=== PATIENT | male | born 1955 | race Caucasian/White ===

== ENCOUNTER 2016-10-06 09:36 | Emergency (ER) | payer OTHER ==
[~2016-10-06] VITALS: Ht 182.9 cm; Wt 73.9 kg
[2016-10-06] MEDS ORDERED: INCR1INH (09:52)
[2016-10-06] MEDS ORDERED: TRAZ100T4 (09:52)
[2016-10-06] MEDS ORDERED: PRAZ2CAP (09:52)
[2016-10-06] MEDS ORDERED: PRAV80TA2 (09:52)
[2016-10-06] MEDS ORDERED: ALBU17IN (09:52)
[2016-10-06] MEDS ORDERED: ASPIRIN 81 MG CHEW TABLET PO ONE (11:00)
[2016-10-06 11:07] LABS: BASO % 0.3 % (0.0-1.0); EOS # 0.3 K/mm3 (0.0-0.50); EOS % 3.4 % (0.0-3.0); LARGE UNSTAINED CELL # 0.1 K/mm3 (0.0-0.4); LARGE UNSTAINED CELL % 1.5 % (0.0-4.0); LYMPH # 2.6 K/mm3 (1.5-4.5); LYMPH % 27.8 % (24.0-44.0); MEAN CORPUSCULAR HEMOGLOBIN 30.5 pg (27.0-33.0); MEAN CORPUSCULAR HGB CONC 33.3 g/dl (32.0-36.5); MEAN CORPUSCULAR VOLUME 91.8 fl (80.0-96.0); MONO # 0.4 K/mm3 (0.0-0.8); MONO % 4.4 % (0.0-5.0); NEUTROPHILS # 5.9 K/mm3 (1.8-7.7); NEUTROPHILS % 62.7 % (36.0-66.0); PLATELET COUNT, AUTOMATED 296 k/mm3 (150-450); RED CELL DISTRIBUTION WIDTH 13.5 % (11.5-14.5); WHITE BLOOD COUNT 9.4 K/mm3 (4.0-10.0)
[2016-10-06 11:20] LABS: ALBUMIN 3.4 GM/DL (3.2-5.2); ALBUMIN/GLOBULIN RATIO 0.92 (1.00-1.93); ALKALINE PHOSPHATASE 83 U/L (45-117); ALT/SGPT 12 U/L (12-78); ANION GAP 6 MEQ/L (8-16); AST/SGOT 11 U/L (15-37); BILIRUBIN,DIRECT 0.1 MG/DL (0.0-0.2); BILIRUBIN,TOTAL 0.7 MG/DL (0.2-1.0); BLOOD UREA NITROGEN 10 MG/DL (7-18); CALCIUM LEVEL 8.6 MG/DL (8.5-10.1); CARBON DIOXIDE LEVEL 26 MEQ/L (21-32); CHLORIDE LEVEL 107 MEQ/L (98-107); CREATININE FOR GFR 0.91 MG/DL (0.70-1.30); GLOMERULAR FILTRATION RATE > 60.0 (>56); GLUCOSE, FASTING 110 MG/DL (70-105); POTASSIUM SERUM 4.1 MEQ/L (3.5-5.1); SODIUM LEVEL 139 MEQ/L (136-145); TOTAL PROTEIN 7.1 GM/DL (6.4-8.2)
--- NOTE | 2016-10-06 12:02 | REP ---
Chest one-view HISTORY: Chest pain Comparison: 12/27/2015 The lungs are clear. The heart is normal in size. The pulmonary vasculature is normal in appearance. Impression: No acute disease. Signed by Enmanuel Neff MD 10/06/2016 11:32 A
[2016-10-06 15:20] VITALS: BP 118/71
--- NOTE | 2016-10-07 08:05 | ECGEPIP ---
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
--- NOTE | 2016-10-07 08:10 | ECGEPIP ---
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
== END 2016-10-06 15:38 | disposition home or self-care (01) ==
LOC: M ED 11:01
DX: R07.89 Other chest pain (principal); I10 Essential (primary) hypertension; E78.5 Hyperlipidemia, unspecified; J44.9 Chronic obstructive pulmonary disease, unspecified; N40.0 Benign prostatic hyperplasia without lower urinary tract symptoms; F10.21 Alcohol dependence, in remission; F19.21 Other psychoactive substance dependence, in remission; F17.200 Nicotine dependence, unspecified, uncomplicated; Z82.49 Family history of ischemic heart disease and other diseases of the circulatory system; Z79.51 Long term (current) use of inhaled steroids; Z79.899 Other long term (current) drug therapy

== ENCOUNTER → 2016-10-12 | Outpatient (CLI) | payer OTHER ==
[~2016-10-12] MED LIST: ALBU17IN; INCR1INH; PRAV80TA2; PRAZ2CAP; TRAZ100T4
[2016-10-14 08:06] LABS: ALT 10 IU/L (0-55); FIBROSIS STAGE F0-F1 (.); GGT 14 IU/L (0-65); HAPTOGLOBIN 165 mg/dL (34-200); NECROINFLAM SCORE 0.02 (0.00-0.17); NECROINFLAMM GRADE A0-No activity (.); TOTAL BILIRUBIN 0.4 mg/dL (0.0-1.2)
== END ==
LOC: M LAB 08:49
PROVIDERS: ATTEND Nurse Practitioner Adult Health
DX: B18.2 Chronic viral hepatitis C (principal)

== ENCOUNTER → 2017-03-24 | Outpatient (CLI) | payer OTHER ==
[~2017-03-24] MED LIST changes: +TRAZ-136; -TRAZ100T4
[2017-03-24 09:44] LABS: BASO % 0.3 % (0.0-1.0); EOS # 0.3 10^3/uL (0.0-0.50); EOS % 2.8 % (0.0-3.0); IMMATURE GRANULOCYTE % 0.3 % (0-0); LYMPH # 3.1 10^3/uL (1.5-4.5); LYMPH % 26.8 % (24.0-44.0); MEAN CORPUSCULAR HEMOGLOBIN 29.4 pg (27.0-33.0); MEAN CORPUSCULAR HGB CONC 33.3 g/dl (32.0-36.5); MEAN CORPUSCULAR VOLUME 88.4 fl (80.0-96.0); MONO # 0.7 10^3/uL (0.0-0.8); MONO % 5.6 % (0.0-5.0); NEUTROPHILS # 7.5 10^3/uL (1.8-7.7); NEUTROPHILS % 64.2 % (36.0-66.0); RED CELL DISTRIBUTION WIDTH 14.6 % (11.5-14.5); WHITE BLOOD COUNT 11.7 10^3/uL (4.0-10.0)
[2017-03-24 10:14] LABS: ALBUMIN 3.5 GM/DL (3.2-5.2); ALBUMIN/GLOBULIN RATIO 1.09 (1.00-1.93); ALKALINE PHOSPHATASE 86 U/L (45-117); ALT/SGPT 14 U/L (12-78); ANION GAP 5 MEQ/L (8-16); AST/SGOT 10 U/L (15-37); BILIRUBIN,TOTAL 0.6 MG/DL (0.2-1.0); BLOOD UREA NITROGEN 9 MG/DL (7-18); CALCIUM LEVEL 9.2 MG/DL (8.8-10.2); CARBON DIOXIDE LEVEL 29 MEQ/L (21-32); CHLORIDE LEVEL 106 MEQ/L (98-107); CHOLESTEROL LEVEL 159 MG/DL (<200); CREATININE FOR GFR 0.84 MG/DL (0.70-1.30); FREE T4 1.06 NG/DL (0.76-1.46); GLOMERULAR FILTRATION RATE > 60.0 (>49); GLUCOSE, FASTING 102 MG/DL (80-110); POTASSIUM SERUM 4.9 MEQ/L (3.5-5.1); SODIUM LEVEL 140 MEQ/L (136-145); TOTAL PROTEIN 6.7 GM/DL (6.4-8.2); TRIGLYCERIDES LEVEL 57 MG/DL (<150)
== END ==
LOC: M LAB 09:16
PROVIDERS: ATTEND Nurse Practitioner Adult Health
DX: R73.9 Hyperglycemia, unspecified (principal)

== ENCOUNTER → 2017-09-23 | Outpatient (CLI) | payer OTHER ==
[2017-09-23 10:21] LABS: BASO % 0.4 % (0.0-1.0); EOS # 0.3 10^3/uL (0.0-0.50); EOS % 2.9 % (0.0-3.0); HEMATOCRIT 45.5 % (42.0-52.0); HEMOGLOBIN 15.4 g/dl (13.5-17.5); IMMATURE GRANULOCYTE % 0.4 % (0-3.0); LYMPH # 3.1 10^3/uL (1.5-4.5); MEAN CORPUSCULAR HEMOGLOBIN 29.6 pg (27.0-33.0); MEAN CORPUSCULAR HGB CONC 33.8 g/dl (32.0-36.5); MEAN CORPUSCULAR VOLUME 87.5 fl (80.0-96.0); MONO # 0.6 10^3/uL (0.0-0.8); MONO % 5.1 % (0.0-5.0); NEUTROPHILS # 6.8 10^3/uL (1.8-7.7); NEUTROPHILS % 62.2 % (36.0-66.0); PLATELET COUNT, AUTOMATED 279 10^3/uL (150-450); RED CELL DISTRIBUTION WIDTH 14.2 % (11.5-14.5); WHITE BLOOD COUNT 10.8 10^3/uL (4.0-10.0)
[2017-09-23 10:40] LABS: ESTIMATED AVERAGE GLUCOSE 126 MG/DL (60-110)
[2017-09-23 10:55] LABS: ALBUMIN 3.7 GM/DL (3.2-5.2); ALBUMIN/GLOBULIN RATIO 1.06 (1.00-1.93); ALKALINE PHOSPHATASE 87 U/L (45-117); ALT/SGPT 12 U/L (12-78); ANION GAP 4 MEQ/L (8-16); AST/SGOT 11 U/L (7-37); BILIRUBIN,TOTAL 0.8 MG/DL (0.2-1.0); BLOOD UREA NITROGEN 8 MG/DL (7-18); CARBON DIOXIDE LEVEL 29 MEQ/L (21-32); CHLORIDE LEVEL 108 MEQ/L (98-107); CHOLESTEROL LEVEL 156 MG/DL (<200); CHOLESTEROL RISK RATIO 3.319 (<5); CREATININE FOR GFR 0.82 MG/DL (0.70-1.30); FREE T4 1.08 NG/DL (0.76-1.46); GLOMERULAR FILTRATION RATE > 60.0 (>49); GLUCOSE, FASTING 103 MG/DL (70-100); HDL CHOLESTEROL 47 MG/DL (>40); NON-HDL-C 109 MG/DL; POTASSIUM SERUM 4.8 MEQ/L (3.5-5.1); SODIUM LEVEL 141 MEQ/L (136-145); TOTAL PROTEIN 7.2 GM/DL (6.4-8.2); TRIGLYCERIDES LEVEL 85 MG/DL (<150)
[2017-09-24 08:54] LABS: TOTAL 25(OH) VITAMIN D 31.8 NG/ML (30.0-100.0)
== END ==
LOC: M LAB 09:53
DX: B18.2 Chronic viral hepatitis C (principal); E78.00 Pure hypercholesterolemia, unspecified; R73.9 Hyperglycemia, unspecified; E55.9 Vitamin D deficiency, unspecified; E78.5 Hyperlipidemia, unspecified; Z79.899 Other long term (current) drug therapy
CPT/HCPCS: 84443

== ENCOUNTER → 2017-10-29 | Outpatient (CLI) | payer OTHER | LOC: M RAD 08:26 | DX: R42 Dizziness and giddiness (principal); H53.9 Unspecified visual disturbance | CPT/HCPCS: 70450 ==

== ENCOUNTER → 2018-09-21 | Outpatient (REF) | payer OTHER ==
[~2018-09-21] MED LIST changes: -TRAZ-136; +TRAZ-163
[2018-09-21 12:11] LABS: BASO % 0.3 % (0.0-1.0); EOS # 0.4 10^3/uL (0.0-0.50); EOS % 3.4 % (0.0-3.0); HEMATOCRIT 45.8 % (42.0-52.0); LYMPH # 3.5 10^3/uL (1.5-4.5); LYMPH % 28.7 % (24.0-44.0); MEAN CORPUSCULAR HEMOGLOBIN 29.1 pg (27.0-33.0); MEAN CORPUSCULAR HGB CONC 32.8 g/dl (32.0-36.5); MEAN CORPUSCULAR VOLUME 88.9 fl (80.0-96.0); MONO # 0.6 10^3/uL (0.0-0.8); MONO % 5.1 % (0.0-5.0); NEUTROPHILS # 7.6 10^3/uL (1.8-7.7); PLATELET COUNT, AUTOMATED 306 10^3/uL (150-450); RED BLOOD COUNT 5.15 10^6/uL (4.30-6.10); WHITE BLOOD COUNT 12.2 10^3/uL (4.0-10.0)
[2018-09-21 12:28] LABS: ALBUMIN 3.6 GM/DL (3.2-5.2); ALT/SGPT 14 U/L (12-78); BILIRUBIN,TOTAL 0.6 MG/DL (0.2-1.0); BLOOD UREA NITROGEN 9 MG/DL (7-18); CARBON DIOXIDE LEVEL 30 MEQ/L (21-32); CHLORIDE LEVEL 107 MEQ/L (98-107); CHOLESTEROL LEVEL 161 MG/DL (<200); CHOLESTEROL RISK RATIO 3.354 (<5); CREATININE FOR GFR 0.82 MG/DL (0.70-1.30); FREE T4 1.06 NG/DL (0.76-1.46); GLOMERULAR FILTRATION RATE > 60.0 (>49); GLUCOSE, FASTING 108 MG/DL (70-100); HDL CHOLESTEROL 48 MG/DL (>40); LDL CHOLESTEROL 98 MG/DL (<100); NON-HDL-C 113 MG/DL; POTASSIUM SERUM 4.5 MEQ/L (3.5-5.1); SODIUM LEVEL 139 MEQ/L (136-145); TOTAL PROTEIN 6.7 GM/DL (6.4-8.2); TRIGLYCERIDES LEVEL 74 MG/DL (<150)
== END ==
LOC: M LABDRAW1 09:14
PROVIDERS: ATTEND Physician Assistant Medical
DX: R53.83 Other fatigue (principal); E78.2 Mixed hyperlipidemia; I10 Essential (primary) hypertension

== ENCOUNTER → 2019-04-10 | Outpatient (CLI) | payer OTHER ==
[2019-04-10 09:08] LABS: BASO # 0.1 10^3/uL (0.0-0.2); BASO % 0.5 % (0.0-1.0); EOS # 0.4 10^3/uL (0.0-0.5); HEMATOCRIT 47.3 % (42.0-52.0); HEMOGLOBIN 15.5 g/dl (13.5-17.5); LYMPH # 3.1 10^3/uL (1.5-5.0); LYMPH % 31.1 % (24.0-44.0); MEAN CORPUSCULAR HEMOGLOBIN 29.4 pg (27.0-33.0); MEAN CORPUSCULAR HGB CONC 32.8 g/dl (32.0-36.5); MEAN CORPUSCULAR VOLUME 89.8 fl (80.0-96.0); MONO # 0.6 10^3/uL (0.0-0.8); MONO % 6.2 % (0.0-5.0); NEUTROPHILS # 5.7 10^3/uL (1.5-8.5); NEUTROPHILS % 57.7 % (36.0-66.0); PLATELET COUNT, AUTOMATED 294 10^3/uL (150-450); RED BLOOD COUNT 5.27 10^6/uL (4.30-6.10)
[2019-04-10 09:44] LABS: ALBUMIN 3.8 GM/DL (3.2-5.2); ALT/SGPT 16 U/L (12-78); BILIRUBIN,TOTAL 0.8 MG/DL (0.2-1.0); BLOOD UREA NITROGEN 13 MG/DL (7-18); CALCIUM LEVEL 9.6 MG/DL (8.8-10.2); CARBON DIOXIDE LEVEL 30 MEQ/L (21-32); CHLORIDE LEVEL 107 MEQ/L (98-107); CHOLESTEROL LEVEL 172 MG/DL (<200); CHOLESTEROL RISK RATIO 3.185 (<5); CREATININE FOR GFR 0.87 MG/DL (0.70-1.30); FREE T4 1.01 NG/DL (0.76-1.46); GLOMERULAR FILTRATION RATE > 60.0 (>49); GLUCOSE, FASTING 109 MG/DL (70-100); HDL CHOLESTEROL 54 MG/DL (>40); LDL CHOLESTEROL 97 MG/DL (<100); NON-HDL-C 118 MG/DL; PROSTATIC SPECIFIC AG MONITOR 1.07 NG/ML (< 4.00); SODIUM LEVEL 140 MEQ/L (136-145); TOTAL PROTEIN 7.6 GM/DL (6.4-8.2); TRIGLYCERIDES LEVEL 105 MG/DL (<150)
== END ==
LOC: M LAB 08:32
PROVIDERS: ATTEND Physician Assistant Medical
DX: Z12.5 Encounter for screening for malignant neoplasm of prostate (principal); R53.83 Other fatigue; I10 Essential (primary) hypertension; E78.5 Hyperlipidemia, unspecified; Z79.899 Other long term (current) drug therapy

== ENCOUNTER → 2020-07-10 | Outpatient (REF) | payer OTHER ==
[~2020-07-10] MED LIST changes: +ANOR1AER INH; +HYDR-3490 PO; +IBUP-1022 PO; +METO1TAB7 PO; -PRAV80TA2; +PRAV80TA2 PO; +STIO1AER INH; +TRAM50TA2 PO; -TRAZ-163; +TRAZ-257 PO; +VENTAER INH
[2020-07-10 18:02] LABS: ALBUMIN 3.7 GM/DL (3.2-5.2); ALT/SGPT 19 U/L (12-78); BILIRUBIN,DIRECT 0.2 MG/DL (0.0-0.2); BILIRUBIN,TOTAL 0.6 MG/DL (0.2-1.0); CALCIUM LEVEL 9.1 MG/DL (8.8-10.2); CREATININE FOR GFR 0.68 MG/DL (0.70-1.30); GLOMERULAR FILTRATION RATE > 60.0 (>49); TOTAL PROTEIN 7.1 GM/DL (6.4-8.2)
[2020-07-10 18:16] LABS: BASO % 0.3 % (0.0-1.0); EOS # 0.2 10^3/uL (0.0-0.5); EOS % 3.1 % (0.0-3.0); HEMATOCRIT 40.3 % (42.0-52.0); HEMOGLOBIN 13.9 g/dl (13.5-17.5); LYMPH # 1.7 10^3/uL (1.5-5.0); LYMPH % 24.6 % (24.0-44.0); MEAN CORPUSCULAR HEMOGLOBIN 27.9 pg (27.0-33.0); MEAN CORPUSCULAR HGB CONC 34.5 g/dl (32.0-36.5); MEAN CORPUSCULAR VOLUME 80.9 fl (80.0-96.0); MONO # 0.5 10^3/uL (0.0-0.8); MONO % 6.6 % (0.0-5.0); NEUTROPHILS # 4.5 10^3/uL (1.5-8.5); NEUTROPHILS % 64.7 % (36.0-66.0); PLATELET COUNT, AUTOMATED 329 10^3/uL (150-450); RED BLOOD COUNT 4.98 10^6/uL (4.30-6.10)
== END ==
LOC: M LAB REF 16:57
PROVIDERS: ATTEND Internal Medicine Pulmonary Disease
DX: R91.8 Other nonspecific abnormal finding of lung field (principal)

== ENCOUNTER 2020-07-14 10:21 | Inpatient (IN) | payer OTHER ==
[~2020-07-14] VITALS: Ht 182.9 cm; Wt 75.0 kg
[~2020-07-14 10:21] MED LIST changes: -ANOR1AER INH; -HYDR-3490 PO; -IBUP-1022 PO; -METO1TAB7 PO; -STIO1AER INH; -TRAM50TA2 PO; -VENTAER INH
[2020-07-14] MEDS ORDERED: IBUP-1022 PO (10:49)
[2020-07-14] MEDS ORDERED: TRAM50TA2 PO (10:50)
[2020-07-14] MEDS ORDERED: HYDR-3490 PO (10:53)
[2020-07-14] MEDS ORDERED: METO1TAB7 PO (10:53)
--- NOTE | 2020-07-14 11:42 | REP ---
INDICATION: CHEST PAIN. COMPARISON: 06/18/2020 TECHNIQUE: SINGLE PORTABLE AP VIEW OF THE CHEST WAS PERFORMED. FINDINGS: No acute infiltrate is seen in the lungs. Left hilar adenopathy is visualized, as seen on CT 06/27/2020. There is also right paratracheal adenopathy. The heart is not enlarged. Visualized osseous structures appear intact. IMPRESSION: No acute infiltrate. Mediastinal and left hilar adenopathy as seen on recent CT. <Electronically signed by Taz Monk > 07/14/20 [id number]
[2020-07-14 11:49] LABS: BASO % 0.1 % (0.0-1.0); EOS % 0.6 % (0.0-3.0); HEMATOCRIT 42.9 % (42.0-52.0); HEMOGLOBIN 15.1 g/dl (13.5-17.5); LYMPH # 0.9 10^3/uL (1.5-5.0); LYMPH % 12.4 % (24.0-44.0); MEAN CORPUSCULAR HEMOGLOBIN 27.4 pg (27.0-33.0); MEAN CORPUSCULAR HGB CONC 35.2 g/dl (32.0-36.5); MEAN CORPUSCULAR VOLUME 77.9 fl (80.0-96.0); MONO # 0.4 10^3/uL (0.0-0.8); NEUTROPHILS # 5.7 10^3/uL (1.5-8.5); PLATELET COUNT, AUTOMATED 317 10^3/uL (150-450); RED BLOOD COUNT 5.51 10^6/uL (4.30-6.10)
[2020-07-14 12:40] LABS: ALBUMIN 3.9 GM/DL (3.2-5.2); ALT/SGPT 23 U/L (12-78); BILIRUBIN,DIRECT 0.1 MG/DL (0.0-0.2); BILIRUBIN,TOTAL 1.3 MG/DL (0.2-1.0); BLOOD UREA NITROGEN 12 MG/DL (7-18); CALCIUM LEVEL 9.6 MG/DL (8.8-10.2); CARBON DIOXIDE LEVEL 30 MEQ/L (21-32); CHLORIDE LEVEL 76 MEQ/L (98-107); CK-MB VALUE MASS 2.1 NG/ML (<3.6); CPK CREATINE PHOSPHOKINASE 138 U/L (39-308); CREATININE FOR GFR 0.73 MG/DL (0.70-1.30); FREE T4 1.31 NG/DL (0.76-1.46); GLOMERULAR FILTRATION RATE > 60.0 (>49); GLUCOSE, FASTING 110 MG/DL (70-100); LIPASE 85 U/L (73-393); MB/CK RELATIVE INDEX 1.52 (< OR =4); POTASSIUM SERUM 4.3 MEQ/L (3.5-5.1); SODIUM LEVEL 115 MEQ/L (136-145); TOTAL PROTEIN 7.8 GM/DL (6.4-8.2); TROPONIN I < 0.02 NG/ML (< 0.10)
[2020-07-14 12:46] LABS: RSV AMPLIFICATION NEGATIVE (NEGATIVE)
[2020-07-14] MEDS ORDERED: MORPHINE 4 MG/ML 1ML VIAL/SYRINGE (J2270) IV ONE (13:00)
[2020-07-14] MEDS ORDERED: ONDANSETRON 4MG/2ML VIAL IV ONE (13:00)
--- NOTE | 2020-07-14 13:20 | HPEPDOC ---
[facility] Medical History & Physical Date of Admission Jul 14, 2020 Date of Service: Jul 14, 2020 History and Physical CHIEF COMPLAINT: chest pain, high blood pressure HISTORY OF PRESENT ILLNESS: 64 year old male with PMHx as indicated, and recent workup suspicious for lung cancer, presents for several week history of worsenin g chest pain, uncontrolled blood pressure at home. Recently started on HCTZ, BB. Denies any other medical complaints. Denies headaches, abdominal pain, N/V/D. He was scheduled for a follow up with his thoracic surgeon this week for a mediansternotomy. PAST MEDICAL HISTORY: #HTN #HLD #Hep C - resolved #COPD SOCIAL HISTORY: smoker - quit 2 months ago EtOH abuse - quit 2013 ALLERGIES: Please see below. REVIEW OF SYSTEMS: Negative except as per HPI HOME MEDICATIONS: Please see below. PHYSICAL EXAMINATION: VITAL SIGNS: See below General: NAD, lying comfortably in bed HEENT: NC/AT, EOMI Lungs: CTA B/L Heart: +S1S2, RRR Abd: soft, NT, +BS Ext: no edema LABORATORY DATA: See below. MICROBIOLOGY: Please see below. A/P: 64 yo male with PMHx as indicated, and recent workup suspicious for lung cancer, presents for several week history of worsening chest pain, uncontrolled blood pressure at home. Recently started on HCTZ, BB. Denies any other medical complaints. Denies headaches, abdominal pain, N/V/D. 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) - diagnosis still in progress, exacerbated with HCTZ - asymptomatic with regards to hyponatremia - nephrology c/s pending #suspicion for lung CA - scheduled on 07/17/20 for mediastinotomy - discussed with thoracic surgery - assistance appreciated - recently quit smoking - 2 months ago #uncontrolled hypertension - d/c HCTZ as above - BB, CCD, hydralazine #chest pain - serial cardiac markers - telemetry monitoring #COPD #HLD #HepC #DVT prophylaxis - lovenox - hold for surgery 07/17/20 Vital Signs Vital Signs Date Time Temp Pulse Resp B/P (MAP) Pulse Ox O2 Delivery O2 Flow Rate FiO2 07/14/20 13:00 69 145/86 (105) 99 07/14/20 10:32 97.9 18 Laboratory Data Labs 24H Laboratory Tests 2 07/14/20 11:32: Immature Granulocyte % (Auto) 0.9, Neutrophils (%) (Auto) 81.0H, Lymphocytes (%) (Auto) 12.4L, Monocytes (%) (Auto) 5.0, Eosinophils (%) (Auto) 0.6, Basophils (%) (Auto) 0.1, Neutrophils # (Auto) 5.7, Lymphocytes # (Auto) 0.9L, Monocytes # (Auto) 0.4, Eosinophils # (Auto) 0.0, Basophils # (Auto) 0.0, Nucleated Red Blood Cells % (auto) 0.0, Anion Gap 9, Glomerular Filtration Rate > 60.0, Calcium Level 9.6, Total Bilirubin 1.3H, Direct Bilirubin 0.1, Aspartate Amino Transf (AST/SGOT) 26, Alanine Aminotransferase (ALT/SGPT) 23, Alkaline Phosphat ase 107, Total Creatine Kinase 138, Creatine Kinase MB 2.1, Creatine Kinase MB Relative Index 1.52, Troponin I < 0.02, Total Protein 7.8, Albumin 3.9, Albumin/Globulin Ratio 1.0, Lipase 85, Thyroid Stimulating Hormone (TSH) 3.270, Free Thyroxine 1.31, Coronavirus (COVID-19)(PCR) NEGATIVE, Influenza Type A (RT- PCR) NEGATIVE, Influenza Type B (RT-PCR) NEGATIVE, Respiratory Syncytial Virus (PCR) NEGATIVE CBC/BMP Laboratory Tests 07/14/20 11:32 Home Medications Scheduled Hydrochlorothiazide (Hydrochlorothiazide) 25 Mg Tablet, 25 MG PO DAILY Metoprolol Succinate (Metoprolol Succinate) 50 Mg Tab.er.24h, 50 MG PO DAILY Pravastatin Sodium (Pravastatin Sodium) 80 Mg Tab, 80 MG PO DAILY Tiotropium Br/Olodaterol HCl (Stiolto Respimat Inhal [place]) 4 Gm Mist.inhal, 2 PUFFS INH DAILY Trazodone HCl (Trazodone HCl) 100 Mg Tab, 100 MG PO QHS Umeclidinium Brm/Vilanterol Tr (Anoro Ellipta 62.5-25 Mcg INH) 1 Each Blst.w.dev, 1 PUFF INH DAILY Scheduled PRN Albuterol Sulfate (Ventolin Hfa) 18 Gm Hfa.aer.ad, 2 PUFFS INH QID PRN for SOB/WHEEZING Ibuprofen (Ibuprofen) 600 Mg Tablet, 600 MG PO TID PRN for PAIN Tramadol HCl (Tramadol HCl) 50 Mg Tablet, 50 MG PO QHS PRN for pain Allergies Coded Allergies: ciprofloxacin (Verified Allergy, Unknown, 07/14/20) A-FIB/CHADSVASC A-FIB History Current/History of A-Fib/PAF?: No BRANDON LYLES MD Jul 14, 2020 13:20
[2020-07-14] MEDS ORDERED: STIO1AER INH (13:39)
[2020-07-14] MEDS ORDERED: VENTAER INH (13:39)
[2020-07-14] MEDS ORDERED: ANOR1AER INH (13:39)
[2020-07-14] MEDS ORDERED: IBUPROFEN 600MG TAB PO PRN (14:00)
[2020-07-14] MEDS ORDERED: ALBUTEROL 90 MCG/ACT 8GM HFA INHALER INH PRN (14:00)
[2020-07-14] MEDS ORDERED: traMADol 50 MG TAB PO PRN (14:00)
[2020-07-14 14:07] LABS: FREE T4 1.32 NG/DL (0.76-1.46); THYROID STIMULATING HORMONE 3.53 uIU/ML (0.358-3.740)
[2020-07-14 14:45] VITALS: BP 178/80
[2020-07-14] MEDS ORDERED: SLF 3 ML SYR IV PRN (15:15)
[2020-07-14] MEDS: amLODIPine 5 MG TAB PO SCH (15:33)
[2020-07-14 16:12] VITALS: BP 144/88
[2020-07-14 16:52] LABS: BLOOD UREA NITROGEN 11 MG/DL (7-18); CALCIUM LEVEL 9.6 MG/DL (8.8-10.2); CARBON DIOXIDE LEVEL 28 MEQ/L (21-32); CHLORIDE LEVEL 77 MEQ/L (98-107); CREATININE FOR GFR 0.79 MG/DL (0.70-1.30); GLOMERULAR FILTRATION RATE > 60.0 (>49); GLUCOSE, FASTING 107 MG/DL (70-100); POTASSIUM SERUM 3.9 MEQ/L (3.5-5.1); SODIUM LEVEL 116 MEQ/L (136-145)
[2020-07-14] MEDS ORDERED: SODIUM CHLORIDE 3% 500 ML IV SCH (17:00)
--- NOTE | 2020-07-14 17:10 | ECGEPIP ---
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
[2020-07-14 17:34] LABS: CHLORIDE,RANDOM URINE 22 MEQ/L; SODIUM,RANDOM URINE 17 MEQ/L
[2020-07-14] MEDS ORDERED: MORPHINE 2 MG/ML 1ML VIAL (J2270) IV PRN (18:30)
[2020-07-14 18:57] LABS: OSMOLALITY URINE 614 MOSM/KG (500-800)
[2020-07-14 20:00] VITALS: BP 155/83
[2020-07-14 20:45] LABS: BLOOD UREA NITROGEN 14 MG/DL (7-18); CALCIUM LEVEL 9.4 MG/DL (8.8-10.2); CARBON DIOXIDE LEVEL 28 MEQ/L (21-32); CHLORIDE LEVEL 81 MEQ/L (98-107); CREATININE FOR GFR 0.85 MG/DL (0.70-1.30); GLOMERULAR FILTRATION RATE > 60.0 (>49); GLUCOSE, FASTING 111 MG/DL (70-100); POTASSIUM SERUM 3.7 MEQ/L (3.5-5.1); SODIUM LEVEL 117 MEQ/L (136-145)
--- NOTE | 2020-07-14 21:08 | CR ---
CONSULTATION DATE: 07/14/2020 REQUESTING PHYSICIAN: Enmanuel Jarrell M.D. CONSULTING PHYSICIAN: Robert Figueroa M.D. REASON FOR CONSULTATION: Management of hyponatremia. CHIEF COMPLAINT: The patient presented to the hospital today with chest pain, high blood pressures at home and cramps in the legs. HISTORY OF PRESENT ILLNESS: Sinan Garcia is a 64-year-old male with past medical history of hypertension, hyperlipidemia, COPD, chronic active smoker, recently diagnosed with a left-sided lung mass as reported by patient. He was told that it is stage III lung cancer. No biopsy or tissue diagnosis is available. He was recently started on hydrochlorothiazide a few weeks ago for high blood pressure. He presents to the hospital with daily leg cramps, chest pains and elevated blood pressures at home. He denies any abdominal pain, nausea, vomiting or diarrhea. In the emergency room, the patient was found to have a sodium level of 115. He is being admitted under the hospitalist service. Nephrology service is called for further help in the management of this patient. The patient needed my immediate attention. I saw and evaluated the patient in the emergency room today. History was obtained. The patient was fully awake and alert and was able to communicate with me. PAST MEDICAL HISTORY: 1. Hypertension. 2. Hyperlipidemia. 3. COPD. 4. Recently diagnosed with a left-sided lung mass. PAST SURGICAL HISTORY: No significant past surgical history. ALLERGIES: He is allergic to Ciprofloxacin. FAMILY HISTORY: No significant family history of end-stage renal disease requiring hemodialysis. SOCIAL HISTORY: The patient is an ex-smoker. He quit two months ago. He has a history of alcohol abuse and he quit drinking in 2013. REVIEW OF SYSTEMS: Constitutional: The patient reports feeling generalized fatigue. Eyes: He denies any blurry vision, double vision. ENT: He denies any dysphagia, odynophagia. Cardiovascular: He reports left-sided chest pain. Respiratory: He reports mild cough. He denies any phlegm and he reports recent diagnosis of left-sided lung mass. GI: He reports decreased appetite. He denies any nausea or vomiting. Genitourinary: He denies any dysuria, hematuria. Musculoskeletal: The patient reports daily muscle cramps. 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 Skin: He denies any rashes or ulcers. Hematological/Oncological: He reports that he was told that he has stage III lung cancer. All other review of systems is negative. PHYSICAL EXAMINATION: GENERAL: The patient is awake, alert, oriented x3, sitting up in the bed. VITAL SIGNS: Temperature is 99.2 degrees Fahrenheit, blood pressure is 144/88, pulse is 67, respiratory rate of 18, saturating 99% on room air. HEAD AND NECK: Extraocular muscles are intact. Pupils are equally round and reactive to light. Mucous membranes are moist. Neck is supple. There is no JVD. CARDIOVASCULAR: S1, S2, regular rate. EXTREMITIES: No edema of the bilateral lower extremities. RESPIRATORY: Chest is clear to auscultation bilaterally. No active rales or rhonchi. ABDOMEN: Soft, positive bowel sounds, nontender, no organomegaly. He does have an umbilical hernia and a hyperpigmented benny in the epigastric region. GENITOURINARY: Bladder is not palpable. MUSCULOSKELETAL: No clubbing or stenosis. Pulses are 2+. 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 5/5 strength in all extremities. SKIN: He has decreased skin turgor because of dehydration. LABORATORY DATA: CBC showed a WBC of 7, hemoglobin 15.1, platelets are 317. Urine random osmolality 629. Random sodium is 14. Chloride is 20. BMP on arrival showed sodium 115, potassium 4.3, chloride 76. Bicarb is 30. Anion gap is 9. BUN 12. Creatinine is 0.7. Osmolality is 241. Total bilirubin 1.3. TSH is 3.2. Free T4 is 1.3. Cortisol is pending. Serology: COVID-19 is negative. IMAGING: A chest x-ray was done which showed no acute infiltrate. Mediastinal and left hilar adenopathy was noted. HOME MEDICATIONS: The patient's home medications were all reviewed by myself. He is currently on: 1. Albuterol p.r.n. 2. Hydrochlorothiazide 25 mg p.o. daily. 3. Metoprolol 50 mg p.o. daily. 4. Pravastatin 80 mg daily. 5. Stiolto inhaler two puffs daily. 6. Tramadol 50 mg p.o. q.h.s. p.r.n. pain. 7. Trazodone 100 mg q.h.s. 8. Anoro Ellipta one puff daily. CURRENT INPATIENT MEDICATIONS: 1. He has been started on albuterol p.r.n. 2. Amlodipine 5 mg p.o. daily. 3. He is on high dose Ibuprofen which I am going to stop because of risk of SISI. 4. He continues to be on metoprolol XL 50 mg p.o. daily. 5. Morphine p.r.n. for pain. 6. Zofran p.r.n. 7. Pravastatin 80 mg p.o. daily. 8. Tramadol 50 mg q.h.s. 9. Trazodone 100 mg q.h.s. ASSESSMENT AND PLAN: 1. Hyponatremia. The patient has hypotonic hyponatremia with high urine osmolality and low urine sodium and low urine chloride, indicating a combination of SIADH and volume depletion. However, at this time because urine is concentrated, I cannot give him normal saline. I need to increase the sodium level close to 120 by tomorrow morning. I have started the patient on hypertonic saline at 40 mL an hour for a total of three hours. Continue to monitor BMP, urine osmolality and urine sodium every four hourly. Once the sodium levels are acceptable, I will try to hydrate him with normal saline if possible. TSH level is within the normal range. Because of history of lung cancer, there is a possibility of adrenal involvement. Cortisol levels are pending. 2. Hypertension. Avoid use of thiazide diuretic, it can worsen hyponatremia. Okay to continue amlodipine and metoprolol at this time. 3. Left-sided lung mass. Avoid use of high-dose ibuprofen at this time. Okay to use morphine. Tissue biopsy result of the lung mass is not available at this time. The patient follows up with CT surgery as outpatient. 4. COPD. Okay to continue inhalers at this time. Some of his respiratory symptoms might be secondary to the mass in the lung. Thank you for involving me in the care of this patient. I shall be happy to follow the patient along with you tomorrow morning. FEROZ
[2020-07-14] MEDS: PERCOCET 5MG/325MG TAB PO PRN (22:35)
[2020-07-14] MEDS: traZODone 100 MG TAB PO SCH (22:35)
[2020-07-14] MEDS: SLF 3 ML SYR IV SCH (22:36)
[2020-07-15] VITALS: BP 151/82
[2020-07-15 00:46] LABS: BLOOD UREA NITROGEN 15 MG/DL (7-18); CALCIUM LEVEL 9.2 MG/DL (8.8-10.2); CARBON DIOXIDE LEVEL 27 MEQ/L (21-32); CHLORIDE LEVEL 81 MEQ/L (98-107); CREATININE FOR GFR 0.87 MG/DL (0.70-1.30); GLOMERULAR FILTRATION RATE > 60.0 (>49); GLUCOSE, FASTING 102 MG/DL (70-100); POTASSIUM SERUM 3.4 MEQ/L (3.5-5.1); SODIUM LEVEL 115 MEQ/L (136-145)
[2020-07-15] MEDS ORDERED: POTASSIUM CHLORIDE 10 MEQ SR TABLET PO ONE (01:00)
[2020-07-15] MEDS ORDERED: SODIUM CHLORIDE 3% 500 ML IV SCH ×2 (02:00→06:15)
[2020-07-15 04:00] VITALS: BP 154/82
[2020-07-15 04:26] LABS: HEMATOCRIT 39.4 % (42.0-52.0); HEMOGLOBIN 13.8 g/dl (13.5-17.5); MEAN CORPUSCULAR HEMOGLOBIN 27.4 pg (27.0-33.0); MEAN CORPUSCULAR VOLUME 78.2 fl (80.0-96.0); PLATELET COUNT, AUTOMATED 305 10^3/uL (150-450); RED BLOOD COUNT 5.04 10^6/uL (4.30-6.10); WHITE BLOOD COUNT 7.9 10^3/uL (4.0-10.0)
[2020-07-15] MEDS: SLF 3 ML SYR IV SCH ×3 (06:00→22:00)
[2020-07-15 06:01] LABS: ALBUMIN 3.6 GM/DL (3.2-5.2); ALT/SGPT 21 U/L (12-78); BILIRUBIN,TOTAL 1.1 MG/DL (0.2-1.0); BLOOD UREA NITROGEN 14 MG/DL (7-18); CALCIUM LEVEL 9.2 MG/DL (8.8-10.2); CARBON DIOXIDE LEVEL 28 MEQ/L (21-32); CHLORIDE LEVEL 82 MEQ/L (98-107); CREATININE FOR GFR 0.84 MG/DL (0.70-1.30); GLOMERULAR FILTRATION RATE > 60.0 (>49); GLUCOSE, FASTING 97 MG/DL (70-100); POTASSIUM SERUM 3.5 MEQ/L (3.5-5.1); SODIUM LEVEL 119 MEQ/L (136-145)
[2020-07-15 06:20] LABS: CHLORIDE,RANDOM URINE < 10 MEQ/L; SODIUM,RANDOM URINE 11 MEQ/L
[2020-07-15 06:26] LABS: OSMOLALITY URINE 526 MOSM/KG (500-800)
[2020-07-15 08:00] VITALS: BP 156/88
[2020-07-15 09:06] LABS: BLOOD UREA NITROGEN 12 MG/DL (7-18); CALCIUM LEVEL 9.5 MG/DL (8.8-10.2); CARBON DIOXIDE LEVEL 26 MEQ/L (21-32); CHLORIDE LEVEL 84 MEQ/L (98-107); CREATININE FOR GFR 0.74 MG/DL (0.70-1.30); GLOMERULAR FILTRATION RATE > 60.0 (>49); GLUCOSE, FASTING 100 MG/DL (70-100); POTASSIUM SERUM 3.9 MEQ/L (3.5-5.1); SODIUM LEVEL 120 MEQ/L (136-145)
[2020-07-15] MEDS: PRAVASTATIN 20 MG TAB PO SCH (09:55)
[2020-07-15] MEDS: METOPROLOL SUCC (TopROL XL) 50MG **XL** TAB PO SCH (09:56)
[2020-07-15] MEDS: amLODIPine 5 MG TAB PO SCH (09:56)
[2020-07-15] MEDS: PERCOCET 5MG/325MG TAB PO PRN ×2 (09:57→16:47)
[2020-07-15 10:34] LABS: CORTISOL BASELINE 26.1 UG/DL (4.3-22.4)
[2020-07-15 10:43] LABS: CORTISOL AM 17.5 UG/DL (4.3-22.4)
--- NOTE | 2020-07-15 11:46 | IPNPDOC ---
Text Note Date of Service The patient was seen on 07/15/20. NOTE Subjective: Patient seen and examined at bedside. No acute overnight events reported. Patient feeling better today. No new medical complaints. Objective: VITAL SIGNS: See below General: NAD, lying comfortably in bed HEENT: NC/AT, EOMI Lungs: CTA B/L Heart: +S1S2, RRR Abd: soft, NT, +BS Ext: no edema LABORATORY DATA: See below. MICROBIOLOGY: Please see below. A/P: 64 yo male with PMHx as indicated, and recent workup suspicious for lung cancer, presents for several week history of worsening chest pain, uncontrolled blood pressure at home. Recently started on HCTZ, BB. Denies any other medical complaints. Denies headaches, abdominal pain, N/V/D. 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) - diagnosis still in progress, exacerbated with HCTZ - asymptomatic with regards to hyponatremia - nephrology c/s appreciated - receiving hypertonic saline #suspicion for lung CA - scheduled on 07/17/20 for mediastinotomy - discussed with thoracic surgery - assistance appreciated - recently quit smoking - 2 months ago #uncontrolled hypertension - d/c HCTZ as above - BB, CCD, hydralazine #chest pain - serial cardiac markers - telemetry monitoring #COPD #HLD #HepC #DVT prophylaxis - lovenox - hold for surgery 07/17/20 Disposition: pending improvement in hyponatremia, plan for vaptan today, follow as per nephrology; plan for mediastinotomy by thoracic surgery on 07/17/20, follow as per Belen Nielsen, I+O Belen ROSEN I+O Laboratory Tests 07/14/20 16:10 07/14/20 19:47 07/15/20 00:01 07/15/20 04:08 07/15/20 07:59 Vital Signs Date Time Temp Pulse Resp B/P (MAP) Pulse Ox O2 Delivery O2 Flow Rate FiO2 07/15/20 09:57 20 07/15/20 09:56 61 156/88 07/15/20 08:00 99.4 97 Room Air I&O- Last 24 Hours up to 6 AM 07/15/20 06:00 Intake Total 480 ml Output Total 425 ml Balance 55 ml BRANDON LYLES MD Jul 15, 2020 11:46
[2020-07-15 12:00] VITALS: BP 162/82
[2020-07-15 13:22] LABS: BLOOD UREA NITROGEN 14 MG/DL (7-18); CALCIUM LEVEL 9.3 MG/DL (8.8-10.2); CARBON DIOXIDE LEVEL 31 MEQ/L (21-32); CHLORIDE LEVEL 84 MEQ/L (98-107); CREATININE FOR GFR 0.84 MG/DL (0.70-1.30); GLOMERULAR FILTRATION RATE > 60.0 (>49); GLUCOSE, FASTING 102 MG/DL (70-100); POTASSIUM SERUM 4.4 MEQ/L (3.5-5.1); SODIUM LEVEL 120 MEQ/L (136-145)
[2020-07-15] MEDS ORDERED: NS 1,000 ML IV SCH (15:15)
[2020-07-15 16:00] VITALS: BP 158/86
[2020-07-15 16:39] LABS: BLOOD UREA NITROGEN 14 MG/DL (7-18); CARBON DIOXIDE LEVEL 32 MEQ/L (21-32); CHLORIDE LEVEL 86 MEQ/L (98-107); CREATININE FOR GFR 0.93 MG/DL (0.70-1.30); GLOMERULAR FILTRATION RATE > 60.0 (>49); GLUCOSE, FASTING 97 MG/DL (70-100); POTASSIUM SERUM 4.3 MEQ/L (3.5-5.1); SODIUM LEVEL 122 MEQ/L (136-145)
[2020-07-15 16:40] LABS: CALCIUM LEVEL 9.6 MG/DL (8.8-10.2)
[2020-07-15 17:31] LABS: CHLORIDE,RANDOM URINE < 10 MEQ/L; SODIUM,RANDOM URINE 11 MEQ/L
[2020-07-15 17:57] LABS: OSMOLALITY URINE 400 MOSM/KG (500-800)
[2020-07-15 20:00] VITALS: BP 137/87
[2020-07-15 20:41] LABS: BLOOD UREA NITROGEN 16 MG/DL (7-18); CALCIUM LEVEL 9.1 MG/DL (8.8-10.2); CARBON DIOXIDE LEVEL 28 MEQ/L (21-32); CHLORIDE LEVEL 89 MEQ/L (98-107); CREATININE FOR GFR 0.76 MG/DL (0.70-1.30); GLOMERULAR FILTRATION RATE > 60.0 (>49); GLUCOSE, FASTING 118 MG/DL (70-100); SODIUM LEVEL 124 MEQ/L (136-145)
[2020-07-15 22:23] LABS: OSMOLALITY URINE 256 MOSM/KG (500-800)
[2020-07-15] MEDS: traZODone 100 MG TAB PO SCH (22:27)
[2020-07-15 22:41] LABS: CHLORIDE,RANDOM URINE 44 MEQ/L; SODIUM,RANDOM URINE 55 MEQ/L
--- NOTE | 2020-07-15 22:45 | IPN ---
NEPHROLOGY PROGRESS NOTE DATE: 07/15/2020 SUBJECTIVE: Sinan is seen and examined this morning at the bedside, reports that he feels better. His nausea has improved. He was able to have breakfast. His serum sodium is appropriately correcting after receiving hypertonic saline overnight. He denies any complaints. PHYSICAL EXAMINATION: VITAL SIGNS: Temperature 97.3, pulse 59, respiratory rate 18, blood pressure 158/86, saturating 97% on room air. Weight in the bed scale today is 76.4 kg. GENERAL APPEARANCE: The patient is seen awake, alert, oriented x3, interactive, conversational, in no apparent distress. HEENT: The extraocular muscles are intact. Tongue is moist. NECK: Supple. Jugular veins are not elevated. HEART: Regular, S1, S2. LUNGS: Symmetric air entry, no crackles or rales. He is comfortable on room air. ABDOMEN: Soft and nontender. There are bowel sounds. EXTREMITIES: Negative for clubbing, cyanosis, or edema. NEUROLOGICAL: He is oriented x3, interactive and conversational. LABORATORY STUDIES: Sodium has improved from 115 up to 120 over a 24-hour period (5 mEq correction), potassium 3.9, bicarbonate 31, BUN 14, creatinine 0.8. Urine osmolality 526. INPATIENT MEDICATIONS: The patient received hypertonic saline overnight for around a total of 300 mL given over several hours, and he is presently ordered for normal saline at 50 mL an hour. He received potassium chloride 20 mEq p.o. times one. The remainder of medications are unchanged as compared to yesterday. PROBLEMS: 1. Hypo-osmolar hyponatremia,, euvolemic to hypovolemic it is secondary to SIADH in the setting of pain, nausea, malignancy and complicated by Hydrochlorothiazide use. His sodium has corrected by 5 mEq in the past 24 hours. His urine osmolality is slightly decreasing now. I am switching him over to normal saline at 100 mL an hour. We will continue BMP q. 4 hourly. I would like to see his sodium come up to around 128 over the next 24 hours and nursing staff will call me if there is any over correction or under correction. He has not suitable for Hydrochlorothiazide going forward. His a.m. cortisol level and thyroid studies did return within acceptable range. 2. Hypertension please keep the patient off of Thiazide diuretic. He is presently on Amlodipine and Metoprolol which is acceptable. 3. Suspicion for lung cancer with plan for mediastinotomy on July 17. We will continue optimize electrolytes prior to his planned procedure. 4. Hypokalemia - The patient received oral potassium supplementation overnight.
[2020-07-16] VITALS: BP 133/71
[2020-07-16 00:33] LABS: BLOOD UREA NITROGEN 14 MG/DL (7-18); CALCIUM LEVEL 8.7 MG/DL (8.8-10.2); CARBON DIOXIDE LEVEL 27 MEQ/L (21-32); CHLORIDE LEVEL 90 MEQ/L (98-107); CREATININE FOR GFR 0.76 MG/DL (0.70-1.30); GLOMERULAR FILTRATION RATE > 60.0 (>49); GLUCOSE, FASTING 101 MG/DL (70-100); POTASSIUM SERUM 3.7 MEQ/L (3.5-5.1); SODIUM LEVEL 123 MEQ/L (136-145)
[2020-07-16 04:00] VITALS: BP 152/88
[2020-07-16] MEDS: PERCOCET 5MG/325MG TAB PO PRN ×2 (04:08→18:10)
[2020-07-16 04:27] LABS: BLOOD UREA NITROGEN 12 MG/DL (7-18); CALCIUM LEVEL 8.8 MG/DL (8.8-10.2); CARBON DIOXIDE LEVEL 27 MEQ/L (21-32); CHLORIDE LEVEL 93 MEQ/L (98-107); CREATININE FOR GFR 0.74 MG/DL (0.70-1.30); GLOMERULAR FILTRATION RATE > 60.0 (>49); GLUCOSE, FASTING 93 MG/DL (70-100); POTASSIUM SERUM 3.9 MEQ/L (3.5-5.1); SODIUM LEVEL 125 MEQ/L (136-145)
[2020-07-16] MEDS: SLF 3 ML SYR IV SCH ×3 (06:48→22:00)
[2020-07-16 07:53] VITALS: BP 101/57
[2020-07-16] MEDS: NS 1,000 ML IV SCH ×2 (09:20→18:10)
[2020-07-16] MEDS: amLODIPine 5 MG TAB PO SCH (10:11)
[2020-07-16] MEDS: PRAVASTATIN 20 MG TAB PO SCH (10:11)
[2020-07-16] MEDS: METOPROLOL SUCC (TopROL XL) 50MG **XL** TAB PO SCH (10:11)
[2020-07-16 11:03] LABS: BLOOD UREA NITROGEN 11 MG/DL (7-18); CALCIUM LEVEL 9.1 MG/DL (8.8-10.2); CARBON DIOXIDE LEVEL 26 MEQ/L (21-32); CHLORIDE LEVEL 92 MEQ/L (98-107); CREATININE FOR GFR 0.82 MG/DL (0.70-1.30); GLOMERULAR FILTRATION RATE > 60.0 (>49); GLUCOSE, FASTING 117 MG/DL (70-100); SODIUM LEVEL 126 MEQ/L (136-145)
[2020-07-16 12:00] VITALS: BP 115/81
--- NOTE | 2020-07-16 12:35 | IPNPDOC ---
Subjective Date Seen The patient was seen on 07/16/20. Subjective Chief Complaint/HPI No complaints this morning except that he could not sleep because of all the noise at the Nursing station. No fever or chills. Objective Physical Examination General Exam: Positive: Alert, Cooperative, No Acute Distress Eye Exam: Positive: PERRLA, Conjunctiva & lids normal, EOMI; Negative: Sclera icteric ENT Exam: Positive: Atraumatic, Mucous membr. moist/pink, Pharynx Normal Neck Exam: Positive: Supple; Negative: JVD, thyromegaly Chest Exam: Positive: Clear to auscultation, Normal air movement Heart Exam: Positive: Rate Normal, Regular Rhythm, Normal S1, Normal S2; Negative: Murmurs, Rubs Abdomen Exam: Positive: Normal bowel sounds, Soft; Negative: Tenderness, Hepatospenomegaly Extremity Exam: Negative: Clubbing, Cyanosis, Edema Assessment /Plan Assessment 64 yo male with PMHx of HTN, HLD, Hep C treated, COPD and recent workup showing left sided lung mass and mediastinal lymph nodes suspicious for lung cancer, presents for several week history of worsening chest pain, leg cramps and un controlled blood pressure at home. Recently started on HCTZ, BB. he was found to have hyponatremia. Hyponatremia SIADH possibly secondary to lung CA exacerbated with HCTZ, pain asymptomatic with regards to hyponatremia nephrology c/s appreciated received hypertonic saline Suspicion for lung CA - scheduled on 07/17/20 for mediastinotomy - discussed with thoracic surgery - assistance appreciated - recently quit smoking - 2 months ago Uncontrolled hypertension amlodipine, metoprolol COPD albuterol takes anoro and stiolto ( which are both similar combination anticholinergic and long acting beta 2 agonist.) and incruse at home will change to formulary meds salmeterol and spiriva. he is supposed to be only on a combination of long acting beta 2 agonist and anticholinergic. Either Stiolto (preferred) or anoro ( cheaper). Incruse was dced by Dr Singleton. HLD statin HepC treated. DVT prophylaxis lovenox - hold for surgery 07/17/20 Plan/VTE VTE Prophylaxis Ordered?: Yes VS, I&O, 24H, Fishbone Vital Signs/I&O Vital Signs Date Time Temp Pulse Resp B/P (MAP) Pulse Ox O2 Delivery O2 Flow Rate FiO2 07/16/20 10:11 52 101/57 07/16/20 07:53 98.4 18 96 Room Air I&O- Last 24 Hours up to 6 AM 07/16/20 06:00 Intake Total 300 ml Output Total 1025 ml Balance -725 ml Laboratory Data 24H LABS Laboratory Tests 2 07/15/20 15:51: Anion Gap 4L, Glomerular Filtration Rate > 60.0, Calcium Level 9.6 07/15/20 16:00: Urine Random Osmolality 400L, Urine Random Sodium 11, Urine Random Chloride < 10 07/15/20 19:59: Anion Gap 7L, Glomerular Filtration Rate > 60.0, Calcium Level 9.1 07/15/20 22:09: Urine Random Osmolality 256L, Urine Random Sodium 55, Urine Random Chloride 44 07/15/20 23:42: Anion Gap 6L, Glomerular Filtration Rate > 60.0, Calcium Level 8.7L 07/16/20 03:55: Anion Gap 5L, Glomerular Filtration Rate > 60.0, Calcium Level 8.8 07/16/20 10:10: Anion Gap 8, Glomerular Filtration Rate > 60.0, Calcium Level 9.1 CBC/BMP Laboratory Tests 07/15/20 15:51 07/15/20 19:59 07/15/20 23:42 07/16/20 03:55 07/16/20 10:10 KIMBERLY WHELAN MD Jul 16, 2020 12:35
--- NOTE | 2020-07-16 13:10 | CR ---
CONSULTATION DATE: 07/16/2020 Patient seen at the request of Dr. Jarrell of the hospitalist service for chest pain, known mediastinal lymphadenopathy, and now hyponatremia. HISTORY OF PRESENT ILLNESS: Patient is a 64-year-old white male who started to experience sharp chest pain approximately 6 weeks ago. He cannot remember if the pain was exacerbated with deep breathing. It came and went, and he was essentially pain free until he presented to the emergency room with excruciating midsternal chest pain, which was again sharp. He has had a chronic cough for many years with some white sputum production. A month ago he was an inveterate smoker of one and one-half cigarettes per day of cigarettes that he obtained from the [facility]. He has quit since then. He does not complain of shortness of breath, and he is able to climb one flight of stairs without getting short of breath. When he climbs two flights of stairs, however, it does begin to wind him. The pain does not radiate to his arms. There is no fever, chills, or sweats and no weight loss, and, in fact, he has gained 5 pounds since smoking cessation a month ago. There is no dysphagia. In the emergency room he was found to be severely hyponatremic with a sodium of 115. Notably, today he states that since the sodium chloride infusions he is feeling so much better than he did when he came in. MEDICAL HISTORY: 1. Chronic obstructive pulmonary disease (COPD). 2. Hypertension. 3. Hypercholesterolemia. SURGICAL HISTORY: Tendon repair in the remote past. ALLERGIES: CIPROFLOXACIN. HOME MEDICATIONS: - hydrochlorothiazide 25 mg daily - metoprolol 50 mg daily - pravastatin 80 mg every night - trazodone 100 mg every night - Anoro Ellipta 62.5/25 one puff daily - Stiolto two puffs daily TRAVEL HISTORY: He has been to [place], [place], and to [place] in the remote past. EXPOSURES: He has two parakeets at home for the last 3 or 4 years but no dogs or cats. No exposure to tuberculosis that he knows of. 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 He also removed old plaster about 40 years ago, which could have given him some asbestos exposure. HABITS: The above smoking history. He used to imbibe alcohol on a daily basis to such an extent that he was having alcoholic seizures but stopped 5 years ago. He has a remote history of intravenous (IV) cocaine abuse and opioid tablet abuse. These problems have long since been resolved. REVIEW OF SYSTEMS: CONSTITUTIONAL: Without fever, chills, sweats, night sweats, or weight loss. EYES: Without diplopia, pain, or vision loss. Without prior monocular blindness or prior jaundice. NOSE: Without epistaxis. Has is own teeth, of which there are very few, with being completely edentulous in the uppers and with a few remaining in the lower. RESPIRATORY: See history of present illness (HPI). CARDIAC: Without palpitations, tachycardias, intermittent claudications, or prior history of myocardial infarctions. No peripheral edema that he has noted. GASTROINTESTINAL: Without nausea, vomiting, diarrhea, constipation, melena, hematochezia, hematemesis, or abdominal pain. GENITOURINARY: Without dysuria, hematuria, or prior history of renal stones. NEUROLOGIC: Without paresthesias, paralyses, or seizures. PSYCHIATRIC: Without pathological anxieties, depressions, or psychoses. PHYSICAL EXAMINATION: A well-developed, well-nourished white male in no acute distress at this point in time. Vital signs: Temperature 98.4 with a heart rate of 52 in a sinus rhythm, respiratory rate of 18 without the use of accessory muscles, who is 96% saturated on room air and whose blood pressure is 101/57. Eyes: Pupils equal, round, reactive to light. Extraocular movements intact. Sclerae anicteric. Nose without deformity. Mouth shows his mucous membranes to be pink and moist. Lips and commissures without lesions. He has a few remaining teeth in the lower jaw, and he is completely edentulous in the upper plate. Neck is supple. There is no jugular venous distention, no subcutaneous emphysema. Trachea is midline. There is no lymphadenopathy or thyromegaly. He has 2+ carotid upstrokes without bruits. Lungs show equal breath sounds on either side with normal vesicular sounds without wheezes, rhonchi, or rales. Percussion note is full to the diaphragm. Cardiac exam is without murmurs, clicks, gallops, or rubs. I cannot feel his point of maximal impulse (PMI). S1 and S2 are normal. Abdomen is soft and nontender. Bowel sounds are positive. There is no hepatomegaly. No costovertebral angle (CVA) tenderness. Extremities show no pretibial edema, no calf tenderness, no differential swelling of the upper extremities. Skin is warm, dry, and perfused without cyanosis or mottling, including that of the nailbeds and knees. Neurologic shows II-XII intact along with gross motor and gross sensation intact. Gait is also intact. Psychiatric shows him to be awake, alert, and oriented times three with appropriate mood and affect and conversational. His white count yesterday was 7.9 with a hemoglobin and hematocrit of 13.8 and 39.4, respectively. He has normal indices, and his platelet count is 305. His chemistries today show a sodium of 126, as compared with an admission sodium of 115. Potassium is 4.0 with a BUN and creatinine of 11 and 0.82, glucose of 117, and a calcium of 9.1. His chest CT done at [facility] on 06/27/2020 shows a spiculated left upper lobe lesion. He has very significant mediastinal lymphadenopathy on both sides and hilar lymphadenopathy on the left side. There is a very large right paratracheal node on the right, which measures 3.6 cm in its greatest dimension. He also has a smaller left paratracheal node, which measures 1.8 cm, and diffuse hilar lymphadenopathy. Additionally, I do see some right hilar adenopathy. There are no pericardial effusions, and the adrenals have a normal configuration. His liver has a smooth contour, and there are no lesions. His pulmonary function tests show an FEV1 of 2.30, which is 61% of predicted with an FEV1/FVC ratio of 60% of predicted and a diffusion DLCO of 15.62, which is 54% of predicted. IMPRESSION: 1. Mediastinal lymphadenopathy. 2. Left upper lobe lung mass. 3. Hyponatremia. 4. Chest pain, noncardiac. PLAN AND DISCUSSION: He does have a relatively small left upper lobe lesion with a large amount of mediastinal lymphadenopathy. This might be surprising that the lesion and the mediastinal lymphadenopathy are connected, but I do not think so. Depending on the biology of the tumor, the tumor could very well have metastasized to the mediastinum without a very large lung tumor. I think his hyponatremia is probably secondary to his lung tumor, although he was recently started on hydrochlorothiazide, and that could be contributing. Common things being in common, I suspect this is going to be secondary to an undiagnosed malignancy. It should be noted that his EKG does not show any acute changes, and his chest pain is not cardiac in nature. His sodium is being corrected, and he is okay to go to the operating room (OR). I will therefore take him tomorrow to the operating room to do a mediastinoscopy to establish his diagnosis. He understands that the procedure is to establish a diagnosis and not to be therapeutic. Therapy, if this is metastatic tumor, would consist of radiation and systemic chemotherapy, and depending upon the markers could be a candidate for immunotherapy if he is PD-L1 positive. Other possible considerations for this mediastinal lymphadenopathy could be sarcoidosis or prior fungal disease, although he does not present with any symptomology of fungal disease, even though he has positive travel history to the [facility] and [facility].
[2020-07-16] MEDS: TIOTROPIUM INHALER/CAPSULE (SPIRIVA) INH SCH (16:01)
[2020-07-16 16:42] LABS: BLOOD UREA NITROGEN 12 MG/DL (7-18); CALCIUM LEVEL 8.5 MG/DL (8.8-10.2); CARBON DIOXIDE LEVEL 28 MEQ/L (21-32); CHLORIDE LEVEL 92 MEQ/L (98-107); CREATININE FOR GFR 0.71 MG/DL (0.70-1.30); GLOMERULAR FILTRATION RATE > 60.0 (>49); GLUCOSE, FASTING 95 MG/DL (70-100); POTASSIUM SERUM 3.8 MEQ/L (3.5-5.1); SODIUM LEVEL 127 MEQ/L (136-145)
[2020-07-16 20:00] VITALS: BP 170/90
[2020-07-16] MEDS ORDERED: SYMBICORT 160/4.5MCG INHALER 6GM INH SCH (20:00)
[2020-07-16 20:42] VITALS: BP 158/80
[2020-07-16] MEDS: SALMETEROL DISKUS 50MCG INHALER (SEREVENT) INH SCH (21:40)
[2020-07-16 22:28] LABS: BLOOD UREA NITROGEN 12 MG/DL (7-18); CARBON DIOXIDE LEVEL 25 MEQ/L (21-32); CHLORIDE LEVEL 95 MEQ/L (98-107); CREATININE FOR GFR 0.83 MG/DL (0.70-1.30); GLOMERULAR FILTRATION RATE > 60.0 (>49); GLUCOSE, FASTING 110 MG/DL (70-100); POTASSIUM SERUM 3.8 MEQ/L (3.5-5.1); SODIUM LEVEL 128 MEQ/L (136-145)
[2020-07-17] VITALS (10 sets, daily range): BP systolic 150–190; BP diastolic 78–98
[2020-07-17] MEDS: traZODone 100 MG TAB PO SCH ×2 (00:44→22:32)
[2020-07-17] MEDS: PERCOCET 5MG/325MG TAB PO PRN ×3 (00:44→22:32)
[2020-07-17] MEDS: amLODIPine 5 MG TAB PO SCH (01:03)
[2020-07-17] MEDS: SLF 3 ML SYR IV SCH ×3 (05:02→22:34)
[2020-07-17 05:52] LABS: BLOOD UREA NITROGEN 9 MG/DL (7-18); CALCIUM LEVEL 8.6 MG/DL (8.8-10.2); CARBON DIOXIDE LEVEL 27 MEQ/L (21-32); CHLORIDE LEVEL 93 MEQ/L (98-107); CREATININE FOR GFR 0.76 MG/DL (0.70-1.30); GLOMERULAR FILTRATION RATE > 60.0 (>49); GLUCOSE, FASTING 101 MG/DL (70-100); POTASSIUM SERUM 3.6 MEQ/L (3.5-5.1); SODIUM LEVEL 126 MEQ/L (136-145)
[2020-07-17] MEDS ORDERED: THROMBIN SOLN 20,000 UNITS KIT As Ordered ONE (06:48)
[2020-07-17] MEDS ORDERED: CETACAINE SPRAY 5GM As Ordered ONE (06:48)
[2020-07-17] MEDS ORDERED: EPINEPHrine 1MG/10ML SYRINGE 1.5IN As Ordered ONE (06:49)
[2020-07-17] MEDS ORDERED: MUPIROCIN 2% OINT 22 GM TUBE As Ordered ONE (06:49)
[2020-07-17] MEDS ORDERED: BUPIVACAINE LIPOSOME/PF 1.3% 20ML VIAL (13.3MG/ML)(EXPAREL)(C9290 PER1MG) As Ordered ONE (06:50)
[2020-07-17] MEDS ORDERED: LIDOCAINE 2% 100MG/5ML SDV (FOR ANES.) As Ordered ONE (07:04)
[2020-07-17] MEDS ORDERED: ROCURONIUM BROMIDE 50 MG/5 ML VIAL As Ordered ONE ×2 (07:04→08:18)
[2020-07-17] MEDS ORDERED: propofoL 200 MG/20 ML VIAL As Ordered ONE (07:04)
[2020-07-17] MEDS ORDERED: fentaNYL 100 MCG/2 ML INJECTION (J3010) As Ordered ONE ×3 (07:05→09:40)
[2020-07-17] MEDS ORDERED: dexameTHASONE 4 MG/ML 1ML VIAL (J1100 PER 1MG) As Ordered ONE (07:05)
[2020-07-17] MEDS ORDERED: MIDAZOLAM INJ 2MG/2ML VIAL (J2250 PER 1MG) As Ordered ONE (07:05)
[2020-07-17] MEDS ORDERED: ONDANSETRON 4MG/2ML VIAL As Ordered ONE (07:05)
[2020-07-17] MEDS ORDERED: KCL 20MEQ IN D5/NS 1000ML 1,000 ML IV SCH (07:28)
[2020-07-17] MEDS ORDERED: NORCO, ANEXSIA 5/325MG TABLET (HYDROcodone/ACETAMINOPHEN) PO PRN (07:30)
[2020-07-17] MEDS ORDERED: LEVALBUTEROL 1.25 MG/0.5 ML CONCENTRATE NEB NEB PRN (07:30)
[2020-07-17] MEDS ORDERED: ONDANSETRON 4MG/2ML VIAL IV PRN ×2 (07:30→10:00)
[2020-07-17] MEDS ORDERED: BISACODYL 10 MG SUPP PR PRN (07:30)
[2020-07-17] MEDS: TIOTROPIUM INHALER/CAPSULE (SPIRIVA) INH SCH ×2 (08:00→13:53)
[2020-07-17] MEDS: LEVALBUTEROL 1.25 MG/0.5 ML CONCENTRATE NEB NEB SCH ×3 (08:00→20:30)
[2020-07-17] MEDS: SALMETEROL DISKUS 50MCG INHALER (SEREVENT) INH SCH ×2 (08:00→20:00)
[2020-07-17] MEDS ORDERED: KETOROLAC 30 MG/ML 1ML VIAL IV SCH (08:00)
[2020-07-17] MEDS ORDERED: ceFAZolin 2 GM/D5W 50 ML IV BAG (J0690 PER 500MG) As Ordered ONE (08:11)
[2020-07-17] MEDS ORDERED: ACETAMINOPHEN 1000MG 100ML IV BTL (OFIRMEV) (J0131 PER 10MG) As Ordered ONE (08:42)
[2020-07-17] MEDS ORDERED: KETOROLAC 60MG 2ML VIAL As Ordered ONE (08:42)
[2020-07-17] MEDS ORDERED: oxyCODONE 5MG TAB As Ordered ONE (09:40)
[2020-07-17] MEDS ORDERED: KETOROLAC 30 MG/ML 1ML VIAL As Ordered ONE (09:43)
[2020-07-17] MEDS ORDERED: KETOROLAC 30 MG/ML 1ML VIAL IV ONE (09:45)
[2020-07-17] MEDS ORDERED: HYDROMORPHONE HCL 0.5 MG/ 0.5 ML SYRINGE (J1170 PER 1) IV PRN (10:00)
[2020-07-17] MEDS ORDERED: oxyCODONE 5MG TAB PO PRN (10:00)
[2020-07-17] MEDS: fentaNYL 100 MCG/2 ML INJECTION (J3010) IV PRN ×2 (10:03→10:20)
[2020-07-17] MEDS ORDERED: LABETALOL 100MG/20ML VIAL As Ordered ONE (10:32)
[2020-07-17] MEDS: LABETALOL 100MG/20ML VIAL IV SCH ×3 (10:35→10:55)
[2020-07-17] MEDS ORDERED: hydrALAZINE 20MG/ML 1ML VIAL (J0360 PER 20MG) IV SCH (10:45)
--- NOTE | 2020-07-17 10:59 | IPNPDOC ---
Subjective Date Seen The patient was seen on 07/17/20. Subjective Chief Complaint/HPI No complaints this morning. Went down for OR today. Objective Physical Examination General Exam: Positive: Alert, Cooperative, No Acute Distress Eye Exam: Positive: PERRLA, Conjunctiva & lids normal, EOMI; Negative: Sclera icteric ENT Exam: Positive: Atraumatic, Mucous membr. moist/pink, Pharynx Normal Neck Exam: Positive: Supple; Negative: JVD, thyromegaly Chest Exam: Positive: Clear to auscultation, Normal air movement Heart Exam: Positive: Rate Normal, Regular Rhythm, Normal S1, Normal S2; Negative: Murmurs, Rubs Abdomen Exam: Positive: Normal bowel sounds, Soft; Negative: Tenderness, Hepatospenomegaly Extremity Exam: Negative: Clubbing, Cyanosis, Edema Assessment /Plan Assessment 64 yo male with PMHx of HTN, HLD, Hep C treated, COPD and recent workup showing left sided lung mass and mediastinal lymph nodes suspicious for lung cancer, presents for several week history of worsening chest pain, leg cramps and uncontrolled blood pressure at home. Recently started on HCTZ, BB. he was found to have hyponatremia. 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 Uncontrolled hypertension amlodipine, metoprolol COPD albuterol takes anoro and stiolto ( which are both similar combination anticholinergic and long acting beta 2 agonist.) and incruse at home will change to formulary meds salmeterol and spiriva. he is supposed to be only on a combination of long acting beta 2 agonist and anticholinergic. Either Stiolto (preferred) or anoro ( cheaper). Incruse was dced by Dr Singleton. HLD statin HepC treated. DVT prophylaxis lovenox - held for surgery 07/17/20 Plan/VTE VTE Prophylaxis Ordered?: Yes VS, I&O, 24H, Fishbone Vital Signs/I&O Vital Signs Date Time Temp Pulse Resp B/P (MAP) Pulse Ox O2 Delivery O2 Flow Rate FiO2 07/17/20 10:30 65 20 179/113 (135) 98 Room Air 07/17/20 09:32 97.0 I&O- Last 24 Hours up to 6 AM 07/17/20 06:00 Intake Total 1710 ml Output Total 0 ml Balance 1710 ml Laboratory Data 24H LABS Laboratory Tests 2 07/16/20 15:46: Anion Gap 7L, Glomerular Filtration Rate > 60.0, Calcium Level 8.5L 07/16/20 21:57: Anion Gap 8, Glomerular Filtration Rate > 60.0, Calcium Level 8.0L 07/17/20 05:10: Anion Gap 6L, Glomerular Filtration Rate > 60.0, Calcium Level 8.6L CBC/BMP Laboratory Tests 07/16/20 15:46 07/16/20 21:57 07/17/20 05:10 Microbiology Microbiology 07/17/20 Acid Fast Stain, Received Pending 07/17/20 Mycobacterial Culture, Received Pending 07/17/20 Fungal Smear, Received Pending 07/17/20 Fungal Culture, Received Pending 07/17/20 Wound Culture, Received Pending 07/17/20 Anaerobic Culture, Received Pending KIMBERLY WHELAN MD Jul 17, 2020 10:59
[2020-07-17] MEDS ORDERED: TOLVAPTAN 7.5 MG HALF-TAB PO ONE ×2 (11:00→21:00)
[2020-07-17] MEDS ORDERED: SUGAMMADEX SODIUM 500 MG/5 ML VIAL (BRIDION) As Ordered ONE ×2 (11:16→16:11)
[2020-07-17] MEDS ORDERED: KETOROLAC 30 MG/ML 1ML VIAL IV PRN (12:00)
[2020-07-17] MEDS ORDERED: TOLVAPTAN 15 MG TAB (SAMSCA) PO ONE ×2 (12:00→21:15)
[2020-07-17] MEDS: PRAVASTATIN 20 MG TAB PO SCH (12:16)
[2020-07-17] MEDS: MOM 30ML SUSPENSION UDC PO SCH (12:16)
[2020-07-17] MEDS: METOPROLOL SUCC (TopROL XL) 50MG **XL** TAB PO SCH (12:17)
[2020-07-17] MEDS: DOCUSATE SODIUM 100MG CAPSULE PO SCH ×2 (12:18→20:42)
[2020-07-17] MEDS: PANTOPRAZOLE 40MG TAB (PROTONIX) PO SCH (12:18)
[2020-07-17] MEDS: HEPARIN SOD (PORCINE) 5000UNITS/ML 1ML VIAL/SYRINGE SC SCH ×2 (12:42→20:41)
[2020-07-17 12:54] LABS: BASO % 0.1 % (0.0-1.0); HEMATOCRIT 38.5 % (42.0-52.0); HEMOGLOBIN 13.3 g/dl (13.5-17.5); LYMPH # 0.4 10^3/uL (1.5-5.0); LYMPH % 4.3 % (24.0-44.0); MEAN CORPUSCULAR HEMOGLOBIN 27.9 pg (27.0-33.0); MEAN CORPUSCULAR HGB CONC 34.5 g/dl (32.0-36.5); MEAN CORPUSCULAR VOLUME 80.7 fl (80.0-96.0); MONO # 0.1 10^3/uL (0.0-0.8); MONO % 1.1 % (0.0-5.0); NEUTROPHILS # 9.3 10^3/uL (1.5-8.5); NEUTROPHILS % 93.8 % (36.0-66.0); PLATELET COUNT, AUTOMATED 278 10^3/uL (150-450); RED BLOOD COUNT 4.77 10^6/uL (4.30-6.10); WHITE BLOOD COUNT 9.9 10^3/uL (4.0-10.0)
[2020-07-17 13:21] LABS: BLOOD UREA NITROGEN 7 MG/DL (7-18); CALCIUM LEVEL 9.2 MG/DL (8.8-10.2); CARBON DIOXIDE LEVEL 26 MEQ/L (21-32); CHLORIDE LEVEL 92 MEQ/L (98-107); CREATININE FOR GFR 0.68 MG/DL (0.70-1.30); GLOMERULAR FILTRATION RATE > 60.0 (>49); GLUCOSE, FASTING 125 MG/DL (70-100); POTASSIUM SERUM 4.1 MEQ/L (3.5-5.1); SODIUM LEVEL 125 MEQ/L (136-145)
--- NOTE | 2020-07-17 16:28 | REP ---
INDICATION: mediastinal lympadenopathy. COMPARISON: Comparison chest x-ray 14 July 2020. TECHNIQUE: Two views. Upright portable exposures.. FINDINGS: The lungs are somewhat hyperinflated but free of infiltrate. Pleural angles are sharp. Monitoring electrodes are seen. Heart is not enlarged. Aorta is somewhat tortuous. No significant bony abnormality is seen.. Mild left hilar and right paratracheal mediastinal fullness unchanged. IMPRESSION: Hyperinflation. Right paratracheal mediastinal and left hilar fullness unchanged.. <Electronically signed by Todd Serra > 07/17/20 [id number]
[2020-07-17 16:32] LABS: BLOOD UREA NITROGEN 9 MG/DL (7-18); CALCIUM LEVEL 9.2 MG/DL (8.8-10.2); CARBON DIOXIDE LEVEL 26 MEQ/L (21-32); CHLORIDE LEVEL 92 MEQ/L (98-107); CREATININE FOR GFR 0.94 MG/DL (0.70-1.30); GLOMERULAR FILTRATION RATE > 60.0 (>49); GLUCOSE, FASTING 167 MG/DL (70-100); POTASSIUM SERUM 4.3 MEQ/L (3.5-5.1); SODIUM LEVEL 127 MEQ/L (136-145)
[2020-07-17] MEDS ORDERED: PILL CUTTER 1 EACH XX PRN (21:15)
[2020-07-18] VITALS: BP 162/82
[2020-07-18] MEDS: LEVALBUTEROL 1.25 MG/0.5 ML CONCENTRATE NEB NEB SCH ×2 (00:48→07:53)
[2020-07-18 04:00] VITALS: BP 170/98
[2020-07-18] MEDS: SLF 3 ML SYR IV SCH (04:55)
[2020-07-18 06:04] LABS: HEMATOCRIT 39.8 % (42.0-52.0); HEMOGLOBIN 13.6 g/dl (13.5-17.5); MEAN CORPUSCULAR HGB CONC 34.2 g/dl (32.0-36.5); MEAN CORPUSCULAR VOLUME 82.1 fl (80.0-96.0); PLATELET COUNT, AUTOMATED 280 10^3/uL (150-450); RED BLOOD COUNT 4.85 10^6/uL (4.30-6.10)
[2020-07-18 06:25] LABS: BLOOD UREA NITROGEN 10 MG/DL (7-18); CALCIUM LEVEL 9.3 MG/DL (8.8-10.2); CARBON DIOXIDE LEVEL 24 MEQ/L (21-32); CHLORIDE LEVEL 100 MEQ/L (98-107); CREATININE FOR GFR 0.79 MG/DL (0.70-1.30); GLOMERULAR FILTRATION RATE > 60.0 (>49); GLUCOSE, FASTING 107 MG/DL (70-100); POTASSIUM SERUM 4.2 MEQ/L (3.5-5.1); SODIUM LEVEL 132 MEQ/L (136-145)
[2020-07-18 07:10] LABS: ATYPICAL LYMPH 3 % (0-5); LYMPHOCYTES 17 % (16-44); MONOCYTES 1 % (0-5); NEUTROPHILS 79 % (28-66); PLATELET ESTIMATE NORMAL (NORMAL)
[2020-07-18 07:11] LABS: OVALOCYTES 1+
[2020-07-18 07:42] VITALS: BP 172/85
[2020-07-18] MEDS: SALMETEROL DISKUS 50MCG INHALER (SEREVENT) INH SCH (07:53)
[2020-07-18] MEDS: TIOTROPIUM INHALER/CAPSULE (SPIRIVA) INH SCH (07:53)
--- NOTE | 2020-07-18 08:48 | REP ---
INDICATION: mediastinal lympadenopathy COMPARISON: 07/17/2020 TECHNIQUE: PA and lateral. FINDINGS: Mediastinal and perihilar adenopathy is again noted. The cardiac silhouette is normal. The lung gan are clear and without consolidation, effusion, or pneumothorax. The skeletal structures are intact and normal. IMPRESSION: Significant mediastinal adenopathy again suggested. <Electronically signed by Jann Nieves > 07/18/20 [id number]
[2020-07-18] MEDS: HEPARIN SOD (PORCINE) 5000UNITS/ML 1ML VIAL/SYRINGE SC SCH (08:56)
[2020-07-18] MEDS: PRAVASTATIN 20 MG TAB PO SCH (08:56)
[2020-07-18] MEDS: MOM 30ML SUSPENSION UDC PO SCH (08:56)
[2020-07-18] MEDS: PANTOPRAZOLE 40MG TAB (PROTONIX) PO SCH (08:56)
[2020-07-18] MEDS: DOCUSATE SODIUM 100MG CAPSULE PO SCH (08:56)
[2020-07-18 08:57] VITALS: BP 172/85
[2020-07-18] MEDS: amLODIPine 5 MG TAB PO SCH (08:57)
[2020-07-18] MEDS: METOPROLOL SUCC (TopROL XL) 50MG **XL** TAB PO SCH (08:57)
[2020-07-18] MEDS: PERCOCET 5MG/325MG TAB PO PRN (09:54)
[2020-07-18] MEDS ORDERED: PERC5TAB12 PO (10:13)
[2020-07-18] MEDS ORDERED: AMLO1TAB24 PO (10:13)
--- NOTE | 2020-07-18 12:45 | IPN ---
PROGRESS NOTE DATE: 07/16/2020 SUBJECTIVE: Sinan is seen and examined this morning at the bedside. He reports his appetite is much better. He denies any recurrent nausea. Pain is adequately controlled. Serum sodium has been up trending appropriately. He continues on normal saline and did not require Tolvaptan therapy. OBJECTIVE: VITAL SIGNS: Temperature 97.7, pulse 72, respiratory rate 18, blood pressure 115/81, saturating 98% on room air. INTAKE AND OUTPUT: Intake yesterday was 420. Urine output was recorded as 1 liter, and I's and O's are likely not fully recorded. Weight in the bed scale today is 76 kg. GENERAL: Patient is seen awake, alert, oriented, comfortable, in no apparent distress. HEENT: Extraocular muscles are intact. Tongue is moist. NECK: Supple. Jugular veins are not elevated. HEART: Sounds are regular. S1, S2. There is no peripheral edema. LUNGS: Clear to auscultation bilaterally. No crackle or rale. ABDOMEN: Soft and nontender. There are bowel sounds. EXTREMITIES: Negative for cyanosis, clubbing or edema. NEUROLOGIC: He is oriented x3, interactive and at baseline mentation. LABORATORY DATA: Today's laboratory studies show sodium has come up to 126, potassium 4.0, creatinine 0.8, hemoglobin 13.8. INPATIENT MEDICATIONS: He is on normal saline at 100 cc an hour. He was started on Toprol XL 50 mg p.o. daily, Pravastatin 80 mg p.o. daily and Spiriva one inhalation daily. Remainder of his medications are unchanged as compared to yesterday. PROBLEMS: 1. Hypoosmolar hyponatremia: Secondary to SIADH in the setting of severe nausea, pain, likely malignancy and complicated by Hydrochlorothiazide use. His sodium has continued to correct appropriately over the past two days from 115 up to 126 today. His urine osmolality is also now dilute and I expect that he will continue to autocorrect his sodium and we will continue him on normal saline at this time. BMP frequency now reduced to every 6 hours. I expect to see serum sodium come up to around 130 or so by tomorrow morning. He is not suitable for Hydrochlorothiazide going forward. 2. Hypertension: Please keep the patient off of Thiazide diuretic. He continues on Amlodipine and Metoprolol. 3. Suspicion for lung cancer: Patient is planned for OR with cardiothoracic surgery on July. We will continue to optimize electrolytes prior to his planned procedure.
--- NOTE | 2020-07-18 13:12 | DS.PDOC ---
Discharge Summary General Date of Admission Jul 14, 2020 at 13:20 Date of Discharge 07/18/20 Discharge Summary PROCEDURES PERFORMED DURING STAY: Mediastinoscopy and biopsy. 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 COMPLICATIONS/CHIEF COMPLAINT: Hyponatremia, Abnormal Xray. HOSPITAL COURSE: 64 yo male with PMHx of HTN, HLD, Hep C treated, COPD and re cent workup showing left sided lung mass and mediastinal lymph nodes suspicious for lung cancer, presents for several week history of worsening chest pain, leg cramps and uncontrolled blood pressure at home. Recently started on HCTZ, BB. he was found to have severe hyponatremia. Hyponatremia SIADH possibly secondary to lung CA exacerbated with HCTZ, pain asymptomatic with regards to hyponatremia nephrology c/s appreciated received hypertonic saline and tolvaptan with improvement of Hyponatremia getting tolvaptan Lung CA CT done at [facility] on 06/27/2020 shows a spiculated left upper lobe lesion. He has very significant mediastinal lymphadenopathy on both sides and hilar lymphadenopathy on the left side. There is a very large right paratracheal node on the right, which measures 3.6 cm in its greatest dimension. He also has a smaller left paratracheal node, which measures 1.8 cm, and diffuse hilar lymphadenopathy 07/17/20 frozen section from mediastinoscopy and biopsy showed Non small cell lung ca. recently quit smoking - 2 months ago pain control with Percocet and tramadol. Uncontrolled hypertension amlodipine, metoprolol COPD albuterol takes anoro and stiolto ( which are both similar combination anticholinergic and long acting beta 2 agonist.) and incruse at home will change to formulary meds salmeterol and spiriva. he is supposed to be only on a combination of long acting beta 2 agonist and anticholinergic. Either Stiolto (preferred) or anoro ( cheaper). Incruse was dced by Dr Singleton. Continued only on Stiolto. HLD statin HepC treated. DISCHARGE MEDICATIONS: Please see below. ALLERGIES: Please see below. PHYSICAL EXAMINATION ON DISCHARGE: VITAL SIGNS: Please see below. General Exam: Positive: Alert, Cooperative, No Acute Distress Eye Exam: Positive: PERRLA, Conjunctiva & lids normal, EOMI; Negative: Sclera icteric ENT Exam: Positive: Atraumatic, Mucous membr. moist/pink, Pharynx Normal Neck Exam: Positive: Supple; Negative: JVD, thyromegaly Chest Exam: Positive: Clear to auscultation, Normal air movement Heart Exam: Positive: Rate Normal, Regular Rhythm, Normal S1, Normal S2; Negative: Murmurs, Rubs Abdomen Exam: Positive: Normal bowel sounds, Soft; Negative: Tenderness, Hepatosplenomegaly Extremity Exam: Negative: Clubbing, Cyanosis, Edema LABORATORY DATA: Please see below. ACTIVITY: [As tolerated]. DIET: regular DISPOSITION: 01 Home, Self-Care. DISCHARGE INSTRUCTIONS: Dr Castro in 1 week Nephrology in 1 week ITEMS TO FOLLOW UP ON OUTPATIENT: Final pathology of the biopsy DISCHARGE CONDITION: [Stable]. TIME SPENT ON DISCHARGE: 35 minutes. Vital Signs/I&Os Vital Signs Date Time Temp Pulse Resp B/P (MAP) Pulse Ox O2 Delivery O2 Flow Rate FiO2 07/18/20 10:24 18 07/18/20 08:57 68 172/85 07/18/20 07:42 98.6 99 Room Air I&O- Last 24 Hours up to 6 AM 07/18/20 06:00 Intake Total 3878 ml Output Total 5805 ml Balance -1927 ml Laboratory Data Labs 24H Laboratory Tests 2 07/17/20 15:55: Anion Gap 9, Glomerular Filtration Rate > 60.0, Calcium Level 9.2 07/18/20 00:00: Urine Random Osmolality 166L 07/18/20 05:34: Anion Gap 8, Glomerular Filtration Rate > 60.0, Calcium Level 9.3, Neutrophils (%) (Auto) , Nucleated Red Blood Cells % (auto) 0.0, Neutrophils 79H, Lymphocytes (Manual) 17, Monocytes (Manual) 1, Atypical Lymphocytes 3, Ovalocytes 1+, Platelet Estimate NORMAL CBC/BMP Laboratory Tests 07/17/20 15:55 07/18/20 05:34 Microbiology Microbiology 07/17/20 Acid Fast Stain, Received Pending 07/17/20 Mycobacterial Culture, Received Pending 07/17/20 Fungal Smear, Received Pending 07/17/20 Fungal Culture, Received Pending 07/17/20 Wound Culture, Received Pending 07/17/20 Anaerobic Culture, Received Pending Discharge Medications Scheduled Amlodipine Besylate (Amlodipine Besylate) 5 Mg Tablet, 5 MG PO DAILY Metoprolol Succinate (Metoprolol Succinate) 50 Mg Tab.er.24h, 50 MG PO DAILY, (Reported) Oxycodone HCl/Acetaminophen (Percocet 5-325 mg Tablet) 1 Each Tablet, 1-2 TAB PO TIDP Pravastatin Sodium (Pravastatin Sodium) 80 Mg Tab, 80 MG PO DAILY, (Reported) Tiotropium Br/Olodaterol HCl (Stiolto Respimat Inhal [place]) 4 Gm Mist.inhal, 2 PUFFS INH DAILY, (Reported) Trazodone HCl (Trazodone HCl) 100 Mg Tab, 100 MG PO QHS, (Reported) Scheduled PRN Albuterol Sulfate (Ventolin Hfa) 18 Gm Hfa.aer.ad, 2 PUFFS INH QID PRN for SOB/WHEEZING, (Reported) Tramadol HCl (Tramadol HCl) 50 Mg Tablet, 50 MG PO QHS PRN for pain, (Reported) Allergies Coded Allergies: ciprofloxacin (Verified Allergy, Unknown, 07/14/20) KIMBERLY WHELAN MD Jul 18, 2020 13:12
--- NOTE | 2020-07-19 12:44 | IPN ---
PROGRESS NOTE DATE: 07/18/2020 SUBJECTIVE: Patient is seen and examined at the bedside today. He is back from his mediastinotomy. He reports his pain is adequately controlled. His sodium dipped down from 128 last night down to 125 this afternoon and he is given Tolvaptan. He reports a good appetite and is anxious to go home. OBJECTIVE: VITAL SIGNS: Temperature 97.8, pulse 68, respiratory rate 18, blood pressure 150/82, saturating 98% on room air. INTAKE AND OUTPUT: Intake yesterday was 1.4 liters. Weight in the bed scale today is 76.9 kg. GENERAL: Patient is seen awake, alert, oriented, in no apparent distress. HEENT: Extraocular muscles are intact. Tongue is moist. NECK: Supple. There is no jugular venous distention. HEART: Sounds are regular, S1, S2. There is no leg edema. Peripheral pulses are palpable. LUNGS: Clear to auscultation bilaterally. No crackle or rale. ABDOMEN: Soft and nontender. There are bowel sounds. EXTREMITIES: Negative for cyanosis, clubbing or edema. NEUROLOGIC: He is oriented x3, interactive and conversational. LABORATORY DATA: Show sodium was 128 at 10:00 p.m. last night, but down to 125 at 12:00 this afternoon. Urine osmolality 256. Potassium 4.1, creatinine 0.6, hemoglobin 13.6. INPATIENT MEDICATIONS: Reviewed by myself. He is on D5 NS plus potassium chloride at 75 cc an hour. He was started on Docusate 100 mg p.o. b.i.d., Toradol 15 mg I.V. every 6 hours p.r.n., Xopenex p.r.n., Milk of Magnesia 30 cc p.o. daily, Zofran p.r.n., Protonix 40 mg p.o. daily and I ordered a dose of Tolvaptan 7.5 mg at 1:00 this afternoon and again at 11:00 overnight. Remainder of his medications are unchanged as compared to yesterday. PROBLEMS: 1. Hypoosmolar hyponatremia: Secondary to SIADH in the setting of pain, nausea, malignancy and complicated by Hydrochlorothiazide use. His sodium level was improving nicely and was up to 128 last night, however it did decrease down to 125 this afternoon, and he is written for Tolvaptan 7.5 mg. He received one dose this afternoon and another dose this evening. I expect his sodium should continue to correct appropriately, probably to below 130's by tomorrow morning. He is not suitable for Hydrochlorothiazide going forward. 2. Hypertension: Blood pressures have been elevated, most likely related to postoperative pain. Primary team has adjusted his antihypertensive. He continues on Amlodipine and Metoprolol. Please keep him off of Hydrochlorothiazide. 3. Suspicion for lung malignancy: He is status post mediastinotomy today and pathology is pending. He would be at risk for recurrent hyponatremia and he will need to follow-up in the office for electrolyte monitoring.
--- NOTE | 2020-07-19 12:55 | IPN ---
PROGRESS NOTE DATE: 07/18/2020 SUBJECTIVE: Patient is seen and examined this morning at the bedside. He denies any overnight events or complaints. He is anxious to go home. His sodium has corrected nicely to 132 this morning after receiving a total of 15 mg of Tolvaptan yesterday. PHYSICAL EXAMINATION: VITAL SIGNS: His weight on the bed scale today is 75 kg, intake yesterday 4.1 liter, urine output yesterday 5 liters. GENERAL: Patient is seen walking around the room, awake, alert and oriented in no apparent distress. HEENT: Extraocular muscles intact. Tongue is moist. NECK: Supple. Jugular veins are not elevated. HEART: Heart sounds are regular S1 and S1. There is no peripheral edema. LUNGS: Clear to auscultation bilaterally. No crackle, rale or rhonchus. ABDOMEN: Soft and nontender. There are bowel sounds. EXTREMITIES: Negative for clubbing, cyanosis or edema. NEUROLOGIC: Oriented x3, interactive and conversational. LABORATORY DATA: White count is 14.0, hemoglobin is 13.6, platelets are 280,000. Sodium is 132, potassium is 4.2, bicarbonate 24, BUN 10. Chest x-ray today shows mediastinal adenopathy and clear lung gan. INPATIENT MEDICATIONS: Reviewed by myself. No change as compared to yesterday. PROBLEMS: 1. 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 Patient has been asymptomatic. His sodium levels have corrected nicely. He received Tolvaptan yesterday. He is appropriate for discharge. I advised him to have adequate caloric intake, follow a regular diet and to keep his water intake to 2 liters or less in a 24 hour period. He will need to follow-up in the Nephrology Office and stay off of Hydrochlorothiazide. 2. Hypertension, blood pressures have been elevated. His amlodipine dose can be increased, he continues on metoprolol. He is not suitable for a thiazide diuretic going forward. 3. Disposition. Patient is acceptable for discharge from a Nephrology point of view. Would follow-up in the office within one week.
--- NOTE | 2020-07-19 12:55 | RO ---
OPERATIVE NOTE DATE OF OPERATION: 07/18/2020 PREOPERATIVE DIAGNOSIS: Mediastinal lymphadenopathy. POSTOPERATIVE DIAGNOSIS: Non-small cell carcinoma. PROCEDURE: Bronchoscopy and mediastinoscopy. FINDINGS: Bronchoscopy revealed a normal branching tracheobronchial tree. There was a moderate amount of secretions, which was suction aspirated. There were no known endobronchial lesions seen. Mediastinoscopy revealed a large, hard mass in the right paratracheal space. On frozen section this proved to be non-small cell carcinoma. SURGEON: Dr. Castro DESCRIPTION OF PROCEDURE: Under satisfactory general anesthesia and single-lumen tube endotracheal intubation, the bronchoscope was passed in the tracheobronchial tree. Each segment and subsegment were thoroughly inspected. There was a normal bronchial anatomy, and there were no new bronchial lesions seen. A moderate amount of secretions was suction aspirated. The patient was then prepped and draped in the usual sterile fashion, and a standard suprasternal notch mediastinoscopy incision was made. Incision was carried down through subcutaneous tissue. Strap muscles were divided. There were two large veins just underneath the strap muscles, which were clipped. A space was then created by digital manipulation along the pretracheal space. The innominate artery could clearly be felt beneath the palpating finger. Mediastinoscope was placed, and there were a number of smaller lymph nodes, which actually looked rather normal. These were removed and sent for frozen section. Underneath these nodes there was a large white mass. I could not bite into it, and therefore a Bovie was used to unroof the capsule. After incising the capsule, then it was copiously biopsied. Frozen section revealed a non-small cell carcinoma. After achieving adequate hemostasis, the wound was packed with thrombin and Gelfoam. The strap muscles were reapproximated by use of a running 3-0 Vicryl suture, as was the subcutaneous tissue, and the skin was reapproximated by use of 4-0 Monocryl subcuticular suture. Patient tolerated the procedure well and left the operating room in the satisfactory condition to the recovery room.
== END 2020-07-18 12:15 | disposition home or self-care (01) | DRG 952 ==
LOC: EDBD 10:21 → M ED 10:21 → M ED INP 13:20 → M PCU 14:38
PROVIDERS: ADMIT Internal Medicine; ATTEND Internal Medicine Nephrology
PROC: 07B74ZX Excision of Thorax Lymphatic, Percutaneous Endoscopic Approach, Diagnostic (ICD-10-PCS; principal; 2020-07-18)
PROC: 0BJ08ZZ Inspection of Tracheobronchial Tree, Via Natural or Artificial Opening Endoscopic (ICD-10-PCS; 2020-07-18)
DX: C34.12 Malignant neoplasm of upper lobe, left bronchus or lung (principal); E22.2 Syndrome of inappropriate secretion of antidiuretic hormone; C77.1 Secondary and unspecified malignant neoplasm of intrathoracic lymph nodes; I10 Essential (primary) hypertension; R07.89 Other chest pain; E78.5 Hyperlipidemia, unspecified; R59.0 Localized enlarged lymph nodes; J44.9 Chronic obstructive pulmonary disease, unspecified; E87.6 Hypokalemia; Z87.891 Personal history of nicotine dependence; Z79.899 Other long term (current) drug therapy; Z88.1 Allergy status to other antibiotic agents; Z20.822 Contact with and (suspected) exposure to COVID-19

== ENCOUNTER → 2020-07-26 | Outpatient (REF) | payer OTHER ==
[~2020-07-26] MED LIST changes: +AMLO1TAB24 PO; +ANOR1AER INH; +HYDR-3490 PO; +IBUP-1022 PO; +METO1TAB7 PO; +PERC5TAB12 PO; +STIO1AER INH; +TRAM50TA2 PO; +VENTAER INH
== END ==
LOC: M LAB REF 17:03
PROVIDERS: ATTEND Internal Medicine Nephrology
DX: I10 Essential (primary) hypertension (principal); E87.1 Hypo-osmolality and hyponatremia

== ENCOUNTER → 2020-08-02 | Outpatient (REF) | payer OTHER | LOC: M LAB REF 17:30 | PROVIDERS: ATTEND Internal Medicine Nephrology | DX: I10 Essential (primary) hypertension (principal); E87.1 Hypo-osmolality and hyponatremia ==

== ENCOUNTER → 2020-08-06 | Outpatient (CLI) | payer OTHER ==
--- NOTE | 2020-08-06 16:24 | RADONC.CN ---
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 He is seen today for consideration of chemoradiation. Diagnosis/Treatment History Oncologic History Patient presented with cough and left sided chest pain to PCP and CXR on 06/18/20 showed right mediastinal fullness. 06/27/20 CT chest showed a CASA primary lesion 1.7 in greatest extent as well as bulky left hilar and bilateral mediastinal adenopathy. He was admitted to [facility] with a sodium of 115, evaluation showing SIADH, thought to be from his tumor, this resolved with conservative management. He was evaluated by Dr. Castro who on 07/17/20 performed mediastinoscopy and biopsy which returned NSCLC (adenocarcinoma PDL1 >90%), additional stains showed no neuroendocrine differentiation. He was deemed inoperable and referred for chemoradiation. 07/10/20 PFTs FEV1 2.3L FVC 3.86L FEV1/FVC 79% predicted DLCO 54% predicted Interval History Sinan reports he has ongoing left sided chest pain. He is taking 10 mg percocet QID. Feels this is adequate at present but acknowledges concern with this given his history of narcotic abuse. He has mild MCLEOD, which is chronic. He recently quit smoking cold turkey. He has preserved appetite and stable weight. Still wresting with the shock of his diagnosis. He Past Medical History: Hyponatremia Past Surgical History: As above Family History: No family cancer history Social History: 60 pack year former smoker quit late 2019 Former alcohol abuse Former narcotic and cocaine abuse Allergies / Meds Allergies: Coded Allergies: ciprofloxacin (Verified Allergy, Unknown, 07/14/20) Home Meds Active Scripts Oxycodone HCl/Acetaminophen (Percocet 5-325 mg Tablet) 1 Each Tablet, 1-2 TAB PO TIDP MDD 6 Tablet(s), #20 TAB Prov:KIMBERLY WHELAN MD 07/18/20 Amlodipine Besylate (Amlodipine Besylate) 5 Mg Tablet, 5 MG PO DAILY, #30 TAB Prov:KIMBERLY WHELAN MD 07/18/20 Reported Medications Tiotropium Br/Olodaterol HCl (Stiolto Respimat Inhal [place]) 4 Gm Mist.inhal, 2 PUFFS INH DAILY 07/14/20 Albuterol Sulfate (Ventolin Hfa) 18 Gm Hfa.aer.ad, 2 PUFFS INH QID PRN for SOB/WHEEZING 07/14/20 Metoprolol Succinate (Metoprolol Succinate) 50 Mg Tab.er.24h, 50 MG PO DAILY 07/14/20 Tramadol HCl (Tramadol HCl) 50 Mg Tablet, 50 MG PO QHS PRN for pain, TAB 07/14/20 Trazodone HCl (Trazodone HCl) 100 Mg Tab, 100 MG PO QHS 10/06/16 Pravastatin Sodium (Pravastatin Sodium) 80 Mg Tab, 80 MG PO DAILY 10/06/16 Review of Systems Constitutional: Denies: Chills, Fever, Night Sweats Eyes: Denies: Pain, Vision change HEENT: Denies: Head Aches, Dysphagia, Sore Throat Skin: Denies: Rash, Lesions, Bruising Pulmonary: Reports: Dyspnea, Cough, Pleuritic Chest Pain Cardiovascular: Denies: Chest Pain, Palpitations, Edema Gastrointestinal: Denies: Nausea, Vomiting, Abdominal Pain, Diarrhea Genitourinary: Denies: Dysuria, Frequency, Incontinence Hematologic: Denies: Bruising, Petecchia, Enlarged Lymph Nodes Musculoskeletal: Denies: Neck pain, Back pain Neurological: Denies: Weakness, Numbness, Incoordination, Change in Speech, Confusion, Seizures, Other Symptoms Psych: Reports: Mood Normal; Denies: Memory Issues, Thoughts of Self Harm Vital Signs Ht 72" Wt 178 lbs T 98 P 59 RR 18 BP 146/85 O2 98% Pain 2 Fatigue 1 General Exam: Positive: Alert, Cooperative, No Acute Distress Eye Exam: Positive: PERRLA, EOMI ENT EXAM: Positive: Mucous membr. moist/pink, Pharynx Normal Neck Exam: Negative: Thyromegaly, Lymphadenopathy Chest Exam: Positive: Normal air movement, Wheezing (Apical right sided) Heart Exam: Positive: Rate Normal, Regular Rhythm Abdomen Exam: Positive: Soft; Negative: Tenderness, Mass Extremity Exam: Negative: Edema, Tenderness Skin Exam: Positive: Nl turgor and temperature; Negative: Rash Neuro Exam: Positive: Normal Gait, Normal Speech, Cranial Nerves 3-12 NL Psych Exam: Positive: Mental status NL, Mood NL, Memory Intact Diagnostic and Laboratory Diagnostic Review Radiologic images, relevant labs and pathology reports were personally reviewed and discussed with Mr. Garcia. Assessment and Plan Impression Mr. Garcia is a 64 year old male former smoker with recently diagnosed CASA NSCLC [id number] stage IIIB. He is seen today for consideration of chemoradiation. Stage NSCLC CASA [id number] stage IIIB Performance Status ECOG 0 Plan We had an extensive discussion with Mr. Garcia regarding the diagnosis at hand and available therapeutic options. He is following with nephrology for his tumor associated SIADH, which is uncommon with adenocarcinoma of the lung, but pathology on hand has been tested for neuroendocrine markers and is negative, which is reassuring. His main symptom at this time is pain in the left chest, and given his narcotic abuse history both he and I are concerned about the present percocet regimen. I suggested that he see Ita Campbell in palliative care for her skill in managing chronic pain, and her ability to more fully explore non-narcotic pain management options with him. He agreed to the referral. His staging at present is incomplete. I have ordered a PET-CT and an MRI head to complete workup. These should be able to be done in the next 1-2 weeks. He is also scheduled to see medical oncology on 08/23/20, given the two outstanding scans, the timing of this should be fine. I recommended we proceed with concurrent chemoradiation 60-66 Gy in 30-33 fractions with VMAT due to the bilateral mediastinal disease. Of course if the staging studies show distant disease, management will change, I discussed contingencies with him as well. We discussed the logistics of receiving radiation therapy in detail including the need for a 1-time planning session. I will use a 4DCT/ITV approach to minimize PTV margins and hopefully lower normal lung dose. I discussed the side effects of treatment including fatigue, esophagitis, pneumonitis and late fibrosis. After discussing the risks, benefits and alternatives to radiation therapy, Mr. Garcia was amenable to pursuing radiotherapy. All questions were answered to the patient's satisfaction. We instructed the patient that if there were any questions,concerns or changes in clinical status in the interim to contact us. Recommendations PET-CT, MRI head to complete staging Chemoradiation as discussed above Simulation in next 2 weeks Referral to palliative care for left chest pain Billing Statement Total time of [46] minutes was spent preparing for the visit [2], obtaining HPI [5], examining the patient [3], reviewing diagnostic tests [5], discussing management options [20], coordinating care [5], and writing this note [6]. CHELSEA CASH MD Aug 06, 2020 16:24
== END ==
LOC: M ONCR 12:43
PROVIDERS: ATTEND General Practice
DX: C34.12 Malignant neoplasm of upper lobe, left bronchus or lung (principal)

== ENCOUNTER → 2020-08-08 | Outpatient (CLI) | payer OTHER ==
[~2020-08-08] MED LIST changes: +PROHANCE 279.3MG/ML 15ML VIAL As Ordered ONE
--- NOTE | 2020-08-08 10:56 | REPVR ---
PROCEDURE INFORMATION: Exam: MR Head Without and With Contrast Exam date and time: 08/08/2020 10:40 AM Age: 64 years old Clinical indication: Other: Lung CA, staging TECHNIQUE: Imaging protocol: MR of the head without and with intravenous contrast. Contrast material: PROHANCE; Contrast volume: 15 ml; Contrast route: INTRAVENOUS (IV); COMPARISON: CT Head without contrast 10/29/2017 8:37 AM FINDINGS: Brain: There is mild patchy increased T2 signal intensity within the bilateral cerebral periventricular white matter, consistent with chronic microvascular ischemic changes. There are few small focal areas of chronic ischemia in bilateral frontal, parietal and periatrial white matter. There is no abnormal diffusion weighted signal intensity to suggest an acute ischemic event. There is mild diffuse cerebral atrophy present, consistent with this patient's age. No abnormal contrast enhancement is seen. Cerebral ventricles: The ventricular system demonstrates mild diffuse compensatory enlargement. Bones/joints: Unremarkable. Paranasal sinuses: Normal as visualized. No acute sinusitis. Mastoid air cells: Normal as visualized. No mastoid effusion. Orbital cavity: Unremarkable. Soft tissues: Unremarkable. IMPRESSION: 1. No acute infarction, masses or hemorrhage is seen. No acute intracranial abnormality is identified. 2. Diffuse age-related cerebral atrophy and mild chronic microvascular white matter ischemic changes, without evidence of an acute intracranial abnormality. 3. No abnormal contrast enhancement is seen. Electronically signed by: Geovany Alcala On 08/08/2020 10:56:55 AM
== END ==
LOC: M RAD 09:31
PROVIDERS: ATTEND General Practice
DX: C34.12 Malignant neoplasm of upper lobe, left bronchus or lung (principal)
CPT/HCPCS: 70553; A9576

== ENCOUNTER → 2020-08-08 | Outpatient (REF) | payer OTHER ==
[~2020-08-08] MED LIST changes: -PROHANCE 279.3MG/ML 15ML VIAL As Ordered ONE
== END ==
LOC: M LAB REF 16:51
PROVIDERS: ATTEND Internal Medicine Nephrology
DX: I10 Essential (primary) hypertension (principal); E87.1 Hypo-osmolality and hyponatremia

== ENCOUNTER → 2020-08-19 | Outpatient (CLI) | payer OTHER ==
[~2020-08-19] MED LIST changes: +DULC5TAB PO; +SODI1TAB12 PO
--- NOTE | 2020-08-19 17:24 | REP ---
INDICATION: STAGING LUNG CANCER C34.12. COMPARISON: Comparison CT study of the chest 27 June 2020. Comparison MRI study of the brain August 08, 2020.. TECHNIQUE: Fifty minutes following the intravenous injection of a 16.53 mCi dose of F-18 FDG, three-dimensional PET scintigraphy is acquired from the skull base to the proximal thighs. Triplanar noncontrast CT scanning is acquired through the same anatomic range for attenuation correction, and image registration with scan parameters optimized to minimize radiation exposure to the patient. PET scintigraphy and CT datasets were fused and displayed on a workstation with multiplanar and projection display capability. FINDINGS: Head and neck soft tissues are unremarkable. However, there is a hypermetabolic skeletal lesion involving the C2 vertebral body at the base of the dens. No bone destruction is appreciated on accompanying CT but a hypermetabolic lesion is seen here with maximum standard uptake value 7.01. A skeletal metastasis must be suspected. No other skeletal lesion is seen. The known left upper lobe nodule is hypermetabolic, maximum standard uptake value 4.50. There is bulky hypermetabolic left hilar and left mediastinal lymphadenopathy with maximum standard uptake value here 13.54. Right paratracheal adenopathy is also seen to be hypermetabolic, 12.58. No other abnormal hypermetabolic uptake is seen in the chest. In the abdomen and pelvis, normal hepatic, splenic, gastrointestinal, and genitourinary FDG distribution is seen. No abnormal hypermetabolic uptake is seen in the abdomen or pelvis. Scan is otherwise unremarkable. IMPRESSION: Findings compatible with bronchogenic malignancy left upper lobe with left hilar and mediastinal hypermetabolic adenopathy. There is also evidence of a skeletal metastasis in the base of the dens at the C2 vertebral body. <Electronically signed by Todd Serra > 08/19/20 [id number]
== END ==
LOC: M PLARAD 11:23
PROVIDERS: ATTEND General Practice
DX: C34.12 Malignant neoplasm of upper lobe, left bronchus or lung (principal)
CPT/HCPCS: 78815; A9552

== ENCOUNTER → 2020-09-04 | Outpatient (CLI) | payer OTHER ==
[~2020-09-04] MED LIST changes: +FOLI1TAB11 PO; +LIDOCAINE 1% MDV 20ML VIAL As Ordered ONE; +MIDAZOLAM INJ 2MG/2ML VIAL (J2250 PER 1MG) As Ordered ONE; +MIRA3350; +MORP-69; +ONDA8TAB10 PO; +OXYC10TA12; +PROC10TA4 PO; +ceFAZolin 1GM VIAL (J0690 PER 500MG) As Ordered ONE; +diphenhydrAMINE 50MG/ML VIAL (J1200) As Ordered ONE; +fentaNYL 100 MCG/2 ML INJECTION (J3010) As Ordered ONE
--- NOTE | 2020-09-04 15:59 | IRHP ---
[facility] [place] IR Pre-Procedure H & P General Date of Service: Sep 04, 2020 Procedure: Same Day Surgery Interval History and Physical I have seen the patient and reviewed last H & P performed within 30 days. There is no significant interval change. History of Present Illness Chief Complaint The patient is a 64-year-old male admitted with a reason for visit of Lung Ca. PRE-PROCEDURE DIAGNOSIS: Lung cancer HEART: Normal rate. LUNGS: Normal breathing at rest. ASA Classification ASA Classification: III-Severe systemic dis. Mallampati Score: II NPO: Yes Problems with prior sedation: No Obstructive Sleep Apnea: No Plan moderate sedation Allergies Coded Allergies: ciprofloxacin (Verified Allergy, Unknown, 07/14/20) hydrochlorothiazide (Verified Adverse Reaction, Severe, low sodium levels, 08/23/20) Home Medications Scheduled Amlodipine Besylate (Amlodipine Besylate), 5 MG PO DAILY Bisacodyl (Dulcolax), 1 TAB PO ASDIRECTED, (Reported) Folic Acid (Folic Acid), 1 TAB PO DAILY Metoprolol Succinate (Metoprolol Succinate), 50 MG PO DAILY, (Reported) Pravastatin Sodium (Pravastatin Sodium), 80 MG PO DAILY, (Reported) Sodium Chloride (Sodium Chloride), 1 TAB PO QID, (Reported) Tiotropium Br/Olodaterol HCl (Stiolto Respimat Inhal [place]), 2 PUFFS INH DAILY, (Reported) Trazodone HCl (Trazodone HCl), 100 MG PO QHS, (Reported) Scheduled PRN Albuterol Sulfate (Ventolin Hfa), 2 PUFFS INH QID PRN for SOB/WHEEZING, (Reported) Ondansetron HCl (Ondansetron HCl), 8 MG PO Q12HP PRN for NAUSEA OR VOMITING Prochlorperazine Maleate (Prochlorperazine Maleate), 10 MG PO Q6H PRN for NAUSEA OR VOMITING Miscellaneous Medications Morphine Sulfate (Morphine Sulfate ER), (Reported) Oxycodone HCl (Oxycodone HCl), (Reported) Polyethylene Glycol 3350 (Miralax), (Reported) ОЛЕГ ROSADO MD Sep 04, 2020 15:59
[2020-09-04 17:30] VITALS: BP 175/91
--- NOTE | 2020-09-05 08:40 | IRPON ---
IR Postoperative Note Date Of Procedure: Sep 04, 2020 Time Of Procedure: 16:00 IR Postoperative Note IR Ultrasound and fluoroscopy guided port placement IR Ultrasound of the neck. IR Moderate sedation. Clinical indication: Lung cancer. Physician: Dr. Demarco. Procedure: The patient was advised of the benefits, risks, and alternatives of the procedure and informed consent was obtained. A time-out was performed with verification of the patient's name, MRN, site of procedure and type of procedure to be performed. The patient was positioned in the supine position on the angiographic table. The site was prepped and draped in the usual sterile fashion. Moderate sedation was performed by the physician including the presence of an independent trained RN who assisted and monitored the patient's level of consciousness and physiologic status. Following the administration of fentanyl and Versed , the physician spent 45 minutes of continuous face to face time with the patient. Ultrasound of the neck reveals a patent and compressible right internal jugular vein. A furniture rental consultant radiograph reveals no gross abnormality. The neck and anterior chest wall were anesthetized with lidocaine. The right internal jugular vein was accessed using a microintroducer needle under ultrasound guidance, via a lateral approach. An 018 wire was advanced into the superior vena cava, the needle was removed and a microsheath was placed. An Amplatz wire was then passed into the inferior vena cava. An incision at the internal jugular vein access site and anterior chest wall were made using a scalpel. An incision was made at the anterior chest wall. A small pocket was created using a combination of blunt and sharp dissection. A tunneling device was then used to pass the catheter from the pocket to the neck puncture site. An 8- [place] Angio BetaVersity Smart power port was then positioned in the pocket. The catheter was then measured and cut. The introducer sheath was exchanged for a peel-away sheath. The catheter was passed through the peel-away sheath into the internal jugular vein and the peel-away sheath was removed. The port tip was positioned at the cavoatrial junction. The port was then accessed with a Arango needle. The port flushes and aspirates well. The puncture site in the neck was closed. The chest wall incision was then closed with 2-0 Vicryl and 4-0 Monocryl. Glue and Steri- Strips were applied. A sterile dressing was then applied. The patient tolerated the procedure well and was returned to the PRU in stable condition. Estimated blood loss: <5 ml. Complications: None. Conclusion: 1. Successful placement of an 8-[place] Angio dynamics Smart power port via the right internal jugular vein. The port is ready for immediate use. 2. Patient to follow up in IR clinic in 2 weeks. Thank you for this referral. ОЛЕГ DEMARCO MD Sep 05, 2020 08:40
== END ==
LOC: M IRPRO 14:22
PROVIDERS: ATTEND Radiology Diagnostic Radiology
DX: C34.90 Malignant neoplasm of unspecified part of unspecified bronchus or lung (principal); Z79.899 Other long term (current) drug therapy; Z88.1 Allergy status to other antibiotic agents; Z88.8 Allergy status to other drugs, medicaments and biological substances
CPT/HCPCS: 36561; 99152; 99153; C1769; C1788; C1894; J0690; J1200; J1642; J1644; J2250; J3010

== ENCOUNTER → 2020-09-04 | Outpatient (RCR) | payer OTHER ==
--- NOTE | 2020-08-20 10:18 | RADENCPD ---
Date/Time of Encounter Date of Encounter: Aug 20, 2020 Time of Encounter: 10:06 Encounter Spoke to Sinan after his simulation for chest RT. I reviewed his PET-CT in depth with him and he has in addition to the known disease in the chest, a solitary focus of uptake in the C2 vertebral body. He has been experiencing pain in the upper neck worse with head rotation which correlates with this focus. On the CT portion of the PET-CT there were no evident bony changes at this location. The recent MRI head did not extend to adequately image C2. We discussed the next course of action is to continue plan for chemoradiation to the chest disease, in the meantime we should obtain an MRI of the cervical spine and resolve the nature of the C2 lesion. If there is conclusive evidence of cancer at C2, then he would have a solitary metastasis and as such would benefit from SBRT to the site in conjunction with the chest chemoradiation, this would confer a PFS benefit, which could be augmented after completion of local therapies by the addition of immunotherapy as an adjuvant. I will discuss this with Dr. Ochoa. Plan: MRI C-spine Continue with chemoradiation to chest If proven to have a solitary metastasis will add SBRT C2 to site concurrent with chemoradiation, likely 24-27 Gy in 3 fractions with OAR constraints rigidly observed per HYTEC. CHELSEA CASH MD Aug 20, 2020 10:18
[~2020-09-04] MED LIST changes: -LIDOCAINE 1% MDV 20ML VIAL As Ordered ONE; -MIDAZOLAM INJ 2MG/2ML VIAL (J2250 PER 1MG) As Ordered ONE; -ceFAZolin 1GM VIAL (J0690 PER 500MG) As Ordered ONE; -diphenhydrAMINE 50MG/ML VIAL (J1200) As Ordered ONE; -fentaNYL 100 MCG/2 ML INJECTION (J3010) As Ordered ONE
== END ==
LOC: M ONCR 08-20 08:55
PROVIDERS: ATTEND General Practice
DX: C34.12 Malignant neoplasm of upper lobe, left bronchus or lung (principal)

== ENCOUNTER → 2020-09-05 | Outpatient (CLI) | payer OTHER ==
--- NOTE | 2020-09-05 12:23 | REPVR ---
PROCEDURE INFORMATION: Exam: MR Cervical Spine Without and With Contrast Exam date and time: 09/05/2020 9:16 AM Age: 64 years old Clinical indication: Condition or disease; Cancer, metastatic/secondary; Location of cancer not specified; Additional info: Lung CA c2 lesion TECHNIQUE: Imaging protocol: Multiplanar magnetic resonance images of the cervical spine without and with contrast. Contrast material: PROHANCE; Contrast volume: 15 ml; Contrast route: INTRAVENOUS (IV); COMPARISON: PT PET/CT Skull/mid thigh 08/19/2020 12:52 PM FINDINGS: Vertebrae: There is diffuse marrow infiltration involving the dens and C2 body with heterogeneous enhancement, compatible with osseous metastatic disease. There may be marrow infiltration involving the right T3 articulating process, incompletely imaged. Spinal cord: Normal signal. No cord compression. C2-C3: No significant disc disease. No significant spinal stenosis. C3-C4: There is a shallow disc osteophyte complex. The spinal canal and neural foramina are patent. C4-C5: There is a diffuse disc osteophyte complex. There is mild facet hypertrophy. There is moderate to severe left neural foraminal narrowing. C5-C6: There is a diffuse disc osteophyte complex. There is mild facet hypertrophy. There is severe bilateral neural foraminal narrowing. C6-C7: There is a diffuse disc osteophyte complex asymmetric to the left. There is mild facet hypertrophy. There is moderate to severe right and severe left neural foraminal narrowing. There is mild canal stenosis. C7-T1: There is a shallow disc osteophyte complex. There is mild facet hypertrophy. There is moderate right neural foraminal narrowing. Soft tissues: Unremarkable. Vertebral arteries: Expected flow voids in the vertebral arteries. IMPRESSION: 1. Diffuse osseous metastatic disease involving C2. Questionable metastatic disease involving the right T3 articulating process. 2. Degenerative disc disease and spondylosis. Electronically signed by: Yoli Dsouza On 09/05/2020 12:23:06 PM
== END ==
LOC: M PLARAD 09:12
PROVIDERS: ATTEND General Practice
DX: C34.12 Malignant neoplasm of upper lobe, left bronchus or lung (principal); M25.78 Osteophyte, vertebrae; M50.30 Other cervical disc degeneration, unspecified cervical region

== ENCOUNTER → 2020-10-01 | Outpatient (POV) | payer OTHER ==
[~2020-10-01] VITALS: Ht 182.9 cm; Wt 73.6 kg
[~2020-10-01] MED LIST changes: +LIDO2SOL17 PO; +MAGICMW PO; -MIRA3350; +MIRA3350 PO; -MORP-69; +MORP-69 PO; -OXYC10TA12; +OXYC10TA12 PO
[2020-10-01 13:45] VITALS: BP 115/79
--- NOTE | 2020-10-02 12:59 | IRPN ---
[facility] IR Progress Note IR Progress Note DATE: Oct 01, 2020 FOLLOW-UP: Status post port placement. Patient denies pain, swelling or discharge at the site. Patient denies fevers or chills. ON EXAMINATION: Port site appears to be healing well. No redness, fluctuance or discharge. IMPRESSION: Doing well status post port placement. No further follow-up scheduled unless initiated by patient and/or referring provider. Thank you for this referral Allergies Coded Allergies: ciprofloxacin (Verified Allergy, Unknown, 07/14/20) hydrochlorothiazide (Verified Adverse Reaction, Severe, low sodium levels, 08/23/20) VS,Fishbone, I+O VS, Fishbone, I+O Vital Signs Date Time Temp Pulse Resp B/P (MAP) Pulse Ox O2 Delivery O2 Flow Rate FiO2 10/01/20 13:45 98.1 71 20 115/79 (91) 98 Room Air ОЛЕГ ROSADO MD Oct 02, 2020 12:59
== END ==
LOC: M IRPOV 13:04
PROVIDERS: ATTEND Radiology Diagnostic Radiology
DX: Z45.2 Encounter for adjustment and management of vascular access device (principal); Z88.1 Allergy status to other antibiotic agents; Z88.8 Allergy status to other drugs, medicaments and biological substances

== ENCOUNTER → 2020-10-04 | Outpatient (REF) | payer OTHER | LOC: M LAB REF 16:49 | PROVIDERS: ATTEND Internal Medicine Nephrology | DX: E87.1 Hypo-osmolality and hyponatremia (principal); I10 Essential (primary) hypertension ==

== ENCOUNTER → 2020-10-04 | Outpatient (RCR) | payer OTHER | LOC: M ONCR 09-05 10:45 | PROVIDERS: ATTEND General Practice | DX: C34.12 Malignant neoplasm of upper lobe, left bronchus or lung (principal); C79.51 Secondary malignant neoplasm of bone ==

== ENCOUNTER 2020-10-11 09:04 | Outpatient (RCR) | payer OTHER ==
[2020-10-21] MEDS ORDERED: PROC10TA4 PO (19:16)
[2020-10-22] MEDS ORDERED: METO10TA2 PO (13:33)
[2020-10-22] MEDS ORDERED: ONDA8TAB10 PO (13:33)
== END 2020-11-04 ==
LOC: M ONCR 09:04
PROVIDERS: ATTEND General Practice
DX: C34.12 Malignant neoplasm of upper lobe, left bronchus or lung (principal); C79.51 Secondary malignant neoplasm of bone

== ENCOUNTER 2020-10-21 15:39 | Emergency (ER) | payer OTHER ==
[~2020-10-21] VITALS: Ht 182.9 cm; Wt 75.0 kg
[2020-10-21] MEDS ORDERED: NS 1,000 ML IV ONE (16:35)
[2020-10-21] MEDS ORDERED: METOCLOPRAMIDE INJ 10MG/2ML VIAL (J2765 PER 1) IV ONE (16:35)
[2020-10-21 17:32] LABS: BASO % 0.2 % (0.0-1.0); HEMATOCRIT 28.7 % (42.0-52.0); HEMOGLOBIN 9.9 g/dl (13.5-17.5); LYMPH # 0.5 10^3/uL (1.5-5.0); LYMPH % 12.3 % (24.0-44.0); MEAN CORPUSCULAR HEMOGLOBIN 30.5 pg (27.0-33.0); MEAN CORPUSCULAR HGB CONC 34.5 g/dl (32.0-36.5); MEAN CORPUSCULAR VOLUME 88.3 fl (80.0-96.0); MONO # 0.4 10^3/uL (0.0-0.8); MONO % 9.3 % (2.0-8.0); NEUTROPHILS # 3.3 10^3/uL (1.5-8.5); NEUTROPHILS % 77.5 % (36.0-66.0); PLATELET COUNT, AUTOMATED 237 10^3/uL (150-450); RED BLOOD COUNT 3.25 10^6/uL (4.30-6.10); WHITE BLOOD COUNT 4.3 10^3/uL (4.0-10.0)
[2020-10-21 17:59] LABS: ALBUMIN 3.1 GM/DL (3.2-5.2); ALT/SGPT 15 U/L (12-78); BILIRUBIN,DIRECT 0.2 MG/DL (0.0-0.2); BILIRUBIN,TOTAL 0.5 MG/DL (0.2-1.0); BLOOD UREA NITROGEN 6 MG/DL (7-18); CALCIUM LEVEL 8.8 MG/DL (8.8-10.2); CARBON DIOXIDE LEVEL 29 MEQ/L (21-32); CHLORIDE LEVEL 97 MEQ/L (98-107); CK-MB VALUE MASS < 1.0 NG/ML (<3.6); CPK CREATINE PHOSPHOKINASE 24 U/L (39-308); CREATININE FOR GFR 0.54 MG/DL (0.70-1.30); GLOMERULAR FILTRATION RATE > 60.0 (>49); GLUCOSE, FASTING 102 MG/DL (70-100); LIPASE < 10 U/L (73-393); MB/CK RELATIVE INDEX 4.17 (< OR =4); POTASSIUM SERUM 4.2 MEQ/L (3.5-5.1); SODIUM LEVEL 132 MEQ/L (136-145); TOTAL PROTEIN 6.6 GM/DL (6.4-8.2); TROPONIN I < 0.02 NG/ML (< 0.10)
[2020-10-21] MEDS ORDERED: PROC10TA4 PO (19:16)
[2020-10-21 19:35] VITALS: BP 148/74
--- NOTE | 2020-10-22 06:02 | ECGEPIP ---
[facility] - ED Test Date: 2020-10-21 Pat Name: ANASTASIA MITCHELL Department: Room: - Gender: Male Category Manager: LENNY : [id number] Requested By: DONIS DINH Order Number: [id number] Reading MD: Driss Long Measurements Intervals [place] Rate: 73 P: 84 FL: 174 QRS: 75 QRSD: 98 T: 75 QT: 422 QTc: 464 Interpretive Statements Normal sinus rhythm Septal infarct , age undetermined NSTTW ABNORMALITY(S) SIMILAR TO 07/14/20 Electronically Signed on 10-22-2020 6:01:52 EDT by Driss Long
[2020-10-22] MEDS ORDERED: METO10TA2 PO (13:33)
[2020-10-22] MEDS ORDERED: ONDA8TAB10 PO (13:33)
== END 2020-10-21 19:38 | disposition home or self-care (01) ==
LOC: M ED 15:39
DX: R11.0 Nausea (principal); I25.2 Old myocardial infarction; R94.31 Abnormal electrocardiogram [ECG] [EKG]; C34.92 Malignant neoplasm of unspecified part of left bronchus or lung; Z79.899 Other long term (current) drug therapy; Z88.1 Allergy status to other antibiotic agents; Z88.8 Allergy status to other drugs, medicaments and biological substances; Z92.3 Personal history of irradiation
CPT/HCPCS: 80048; 80076; 82550; 82553; 83690; 83735; 85025; 93005; 93041; 96374; 99284; J2765

== ENCOUNTER → 2020-10-23 | Outpatient (CLI) | payer OTHER ==
[~2020-10-23] MED LIST changes: +METO10TA2 PO
--- NOTE | 2020-10-23 09:43 | RADENCPD ---
Date/Time of Encounter Date of Encounter: October 23, 2020 Time of Encounter: 09:39 Encounter Sinan came in for a brief follow up today. He reports that he has been having some dysphagia to solids in recent weeks since finishing his RT, all the while the pain with swallowing has improved, as has the pain in his left chest such that he has been weaned off long-acting narcotic. He is able to take liquids effectively at this time. He has been having some nausea without vomiting, finds the zofran and reglan helpful PRNs. His weight is down 3 lbs. I encouraged him to supplement PO intake with 5-6 ensure daily which should meet his caloric needs. I explained that he has esophagitis, which can take some weeks to resolve and may leave stricture which could benefit from intervention. Overall I expect he will recover in time as the length of heavily irradiated esophagus (next to the involved mediastinal nodes) was short. I will refer him to ELECT[employer]ICIAN [employer]STRU[employer] SUPERVISOR for their input. In the meantime focusing on stabilizing weight with ensure and antiemetics is a good temporizing measure. CHELSEA CASH MD October 23, 2020 09:43
== END ==
LOC: M ONCR 08:40
PROVIDERS: ATTEND General Practice
DX: C34.12 Malignant neoplasm of upper lobe, left bronchus or lung (principal); K20.90 Esophagitis, unspecified without bleeding

== ENCOUNTER → 2020-11-06 | Outpatient (CLI) | payer OTHER ==
--- NOTE | 2020-11-06 09:13 | RADENCPD ---
Date/Time of Encounter Date of Encounter: Nov 06, 2020 Time of Encounter: 09:07 Encounter Sinan came in for a brief follow up today. He reports that he is eating all foods now without difficulty, no longer needing narcotics for pain relief while swallowing. He has no pain to speak of, energy levels are excellent. He has no additional complaints. No significant SOB or MCLEOD. Minimal cough. He is eager to start adjuvant chemoimmunotherapy, does not currently have a medical oncology follow up appointment scheduled. On exam: Weight is 156 lbs (from 149 on 10/23/20) VS WNL OPX is clear, no thrush or mucositis Heart RRR Chest CTAB, there are quiet breath sounds throughout. There is right apical faint expiratory wheezing appreciated. No rales Legs no edema Overall I am pleased with his progress and recovery. I will facilitate follow up with Dr. Ochoa as given his stage he should receive adjuvant systemic therapy. I will see him again in January for survivorship care and follow up. I will defer restaging imaging to Dr. Ochoa. CHELSEA CASH MD Nov 06, 2020 09:13
== END ==
LOC: M ONCR 08:44
PROVIDERS: ATTEND General Practice
DX: C34.12 Malignant neoplasm of upper lobe, left bronchus or lung (principal)

== ENCOUNTER 2020-11-13 12:38 | Emergency (ER) | payer OTHER ==
[~2020-11-13] VITALS: Ht 182.9 cm; Wt 69.1 kg
[2020-11-13] MEDS ORDERED: SODIUM CHLORIDE 0.9% INJ 10 ML SYR IV PRN (15:15)
[2020-11-13 15:21] VITALS: BP 151/79
== END 2020-11-13 15:26 | disposition home or self-care (01) ==
LOC: M ED 12:38
DX: E87.1 Hypo-osmolality and hyponatremia (principal); C34.90 Malignant neoplasm of unspecified part of unspecified bronchus or lung; I10 Essential (primary) hypertension; J44.9 Chronic obstructive pulmonary disease, unspecified; B19.20 Unspecified viral hepatitis C without hepatic coma; Z88.1 Allergy status to other antibiotic agents; Z88.8 Allergy status to other drugs, medicaments and biological substances; Z79.899 Other long term (current) drug therapy
CPT/HCPCS: 99284; J1642

== ENCOUNTER → 2020-12-04 | Outpatient (REF) | payer OTHER ==
[~2020-12-04] MED LIST changes: +TORS5TAB2 PO
== END ==
LOC: M LAB REF 17:07
PROVIDERS: ATTEND Internal Medicine Nephrology
DX: I10 Essential (primary) hypertension (principal); E87.1 Hypo-osmolality and hyponatremia

== ENCOUNTER → 2020-12-27 | Outpatient (CLI) | payer OTHER ==
[~2020-12-27] MED LIST changes: +GASTROGRAFIN SOLUTION 30ML (Q9963) As Ordered ONE; +ISOVUE-370 76% 100ML VIAL As Ordered ONE
--- NOTE | 2020-12-27 14:20 | REP ---
INDICATION: LUNG CA. COMPARISON: 06/27/2020. PET-CT 08/19/2020. TECHNIQUE: CT chest performed following the intravenous administration of 100 cc of Isovue 370. Sagittal and coronal reconstruction images are performed. FINDINGS: Lungs: There are scattered fibrotic changes diffusely bilaterally. The previously noted nodule in the left upper lobe is no longer visualized. Mediastinum: Previously noted right paratracheal adenopathy has essentially resolved with subcentimeter soft tissue remaining. Lori: The previously noted left hilar adenopathy has essentially resolved with subcentimeter residual tissue remaining. Axilla: No adenopathy. Pleura: No effusion. Heart: Not enlarged. Thoracic aorta: No aneurysm or dissection. Visualized osseous structures: Unremarkable. Right central venous catheter is noted. IMPRESSION: The previously noted nodule in the left upper lobe, right paratracheal adenopathy and left hilar adenopathy have essentially resolved as discussed above. Scattered nonspecific interstitial opacities throughout both lungs. <Electronically signed by Taz Monk > 12/27/20 [id number]
--- NOTE | 2020-12-27 14:25 | REP ---
INDICATION: LUNG CA COMPARISON: None. TECHNIQUE: CT Scan of the abdomen and pelvis was performed with intravenous administration of 100 cc of Isovue 370, and oral contrast. FINDINGS: Lung bases: Unremarkable. Liver: Normal Gallbladder: Unremarkable. Spleen: Normal. Adrenals: Normal. Pancreas: Normal. Kidneys: Normal. Small and large bowel: Unremarkable. Free fluid: None. Abdominal aorta: No aneurysm or dissection. Adenopathy: None. Appendix: Not inflamed. Osseous structures: There are degenerative changes of the spine without compression deformity.. Pelvis: No mass. There is a small umbilical hernia containing noninflamed fat. IMPRESSION: No evidence of mass or adenopathy in the abdomen or pelvis. <Electronically signed by Taz Monk > 12/27/20 [id number]
== END ==
LOC: M RAD 10:53
PROVIDERS: ATTEND Internal Medicine Medical Oncology
DX: C34.00 Malignant neoplasm of unspecified main bronchus (principal)
CPT/HCPCS: 71260; 74177; Q9963; Q9967

== ENCOUNTER → 2021-01-02 | Outpatient (REF) | payer OTHER ==
[~2021-01-02] MED LIST changes: -GASTROGRAFIN SOLUTION 30ML (Q9963) As Ordered ONE; -ISOVUE-370 76% 100ML VIAL As Ordered ONE
[2021-01-02 18:23] LABS: FREE T4 1.2 NG/DL (0.76-1.46); MAGNESIUM LEVEL 1.6 MG/DL (1.8-2.4); THYROID STIMULATING HORMONE 0.925 uIU/ML (0.358-3.740)
[2021-01-02 18:33] LABS: SODIUM,RANDOM URINE 47 MEQ/L
[2021-01-02 19:18] LABS: OSMOLALITY URINE 360 MOSM/KG (50-1400)
== END ==
LOC: M LAB REF 17:03
PROVIDERS: ATTEND Internal Medicine Nephrology
DX: E22.2 Syndrome of inappropriate secretion of antidiuretic hormone (principal); E87.1 Hypo-osmolality and hyponatremia

== ENCOUNTER → 2021-01-17 | Outpatient (REF) | payer OTHER | LOC: M LAB REF 17:57 | PROVIDERS: ATTEND Internal Medicine Nephrology | DX: E22.2 Syndrome of inappropriate secretion of antidiuretic hormone (principal); E83.42 Hypomagnesemia ==

== ENCOUNTER → 2021-01-29 | Outpatient (CLI) | payer OTHER ==
[~2021-01-29] MED LIST changes: +MEGE40TA PO
--- NOTE | 2021-01-29 15:06 | RADONC ---
Radiation Oncology Hx/FUP Radiation Oncology Hx/FUP Date of Service: Jan 29, 2021 Pt Identifier Sinan Garcia is a 65 year old male former smoker seen for a followup visit today at the department of radiation oncology for a history of oligometastatic NSCLC [id number] stage ELISA. He had a solitary metastatic focus on PET-CT @ C2. He underwent concurrent chemoradiation for his chest disease 60 Gy in 30 fractions 09/02/20-10/11/20, and SBRT to the C2 lesion 30 Gy in 5 fractions from 10/07/20- 10/11/20. He has been recommended to undergo adjuvant chemoimmunotherapy with Dr. Torres but has held off thus far due to fatigue and weight loss. Diagnosis/Treatment History Oncologic History Patient presented with cough and left sided chest pain to PCP and CXR on 06/18/20 showed right mediastinal fullness. 06/27/20 CT chest showed a CASA primary lesion 1.7 in greatest extent as well as bulky left hilar and bilateral mediastinal adenopathy. 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 He was evaluated by Dr. Castro who on 07/17/20 performed mediastinoscopy and biopsy which returned NSCLC (adenocarcinoma PDL1 >90%), additional stains showed no neuroendocrine differentiation. He was deemed inoperable. Chemoradiation 60 Gy in 30 fractions 09/02/20-10/11/20. SBRT to C2 lesion 10/07/20-10/11/20. He had significant dysphagia from RT esophagitis, which eventually resolved. He requested holding chemotherapy after cycle 3 of carboplatin/pemetrexed due to poor appetite and weight loss. Plan after that was for pemetrexed maintenance and keytruda. Recent data: 12/27/20 CT chest abdomen pelvis CR in lung no residual shelia disease or primary lung mass. No evidence of metastatic progression. Interval History Sinan feels well. Appetite remains poor however. Weight is stable in the 140s. He would like to be in the 150s. No residual dysphagia, tastes still somewhat off. No pain in the chest or neck. No bowel complaints. Current Therapy Pending chemoimmunotherapy Stage NSCLC CASA [id number] stage ELISA Social History: 60 pack year former smoker quit late 2019 Former alcohol abuse Former narcotic and cocaine abuse Allergies / Meds Allergies: Coded Allergies: ciprofloxacin (Verified Allergy, Unknown, 07/14/20) hydrochlorothiazide (Verified Adverse Reaction, Severe, low sodium levels, 08/23/20) Home Meds Active Scripts Megestrol Acetate (Megestrol Acetate) 40 Mg Tablet, 4 TAB PO DAILY, #120 TAB 2 Refills Prov:MARY TORRES MD FACP 01/29/21 Ondansetron HCl (Ondansetron HCl) 8 Mg Tablet, 8 MG PO TID PRN for NAUSEA OR VOMITING, #90 TAB 2 Refills Prov:CHELSEA CASH MD 10/22/20 Prochlorperazine Maleate (Prochlorperazine Maleate) 10 Mg Tablet, 10 MG PO Q6H PRN for NAUSEA OR VOMITING, #30 TAB 2 Refills Prov:DNOIS OLIVERA PHOTOGRAPHER MODEL 10/21/20 Folic Acid (Folic Acid) 1 Mg Tablet, 1 TAB PO DAILY for 30 Days, #90 TAB 1 Refill Prov:MARY TORRES MD FACP 09/02/20 Amlodipine Besylate (Amlodipine Besylate) 5 Mg Tablet, 5 MG PO DAILY, #30 TAB Prov:Silvana Hdz MD 07/18/20 Reported Medications Torsemide (Torsemide) 5 Mg Tablet, 2.5 MG PO DAILY 11/27/20 Metoclopramide HCl (Metoclopramide HCl) 10 Mg Tablet, 1 TAB PO TID for 30 Days, #90 TAB 1 Refill 11/13/20 Polyethylene Glycol 3350 (Miralax) 119 Gm Powder, 17 GM PO QAM 09/04/20 Oxycodone HCl (Oxycodone HCl) 10 Mg Tablet, 1 TAB PO Q4HP 09/04/20 Bisacodyl (Dulcolax) 5 Mg Tablet.dr, 1 TAB PO ASDIRECTED for constipation for 1 Day, #2 TAB 08/23/20 Tiotropium Br/Olodaterol HCl (Stiolto Respimat Inhal [place]) 4 Gm Mist.inhal, 2 PUFFS INH DAILY 07/14/20 Albuterol Sulfate (Ventolin Hfa) 18 Gm Hfa.aer.ad, 2 PUFFS INH QID PRN for SOB/WHEEZING 07/14/20 Metoprolol Succinate (Metoprolol Succinate) 50 Mg Tab.er.24h, 50 MG PO DAILY 07/14/20 Trazodone HCl (Trazodone HCl) 100 Mg Tab, 100 MG PO QHS 10/06/16 Pravastatin Sodium (Pravastatin Sodium) 80 Mg Tab, 80 MG PO DAILY 10/06/16 Review of Systems Review of Systems Constitutional: Denies: Fever, Malaise, Fatigue Eyes: Denies: Pain HEENT: Denies: Head Aches Pulmonary: Denies: Dyspnea, Cough Cardiovascular: Denies: Chest Pain Gastrointestinal: Denies: Nausea, Vomiting, Abdominal Pain Hematologic: Denies: Bruising, Bleeding Excessively Musculoskeletal: Denies: Neck pain, Back pain, Leg pain Neurological: Denies: Weakness, Numbness Psych: Reports: Mood Normal Physical Examination Vital Signs Wt 142 lbs (from 149 lbs on 10/23/20) T 96 P 60 RR 20 BP 157/83 O2 100% Pain 0 Fatigue 0 General Exam: Alert, Cooperative, No Acute Distress Eye Exam: PERRLA, EOMI ENT EXAM: Atraumatic Neck Exam: Supple; Negative: Lymphadenopathy Chest Exam: Clear to auscultation, Normal air movement Heart Exam: Rate Normal, Regular Rhythm Abdomen Exam: Soft; Negative: Tenderness Extremity Exam: Negative: Edema Skin Exam: Nl turgor and temperature Neuro Exam: Normal Gait, Normal Speech, Cranial Nerves 3-12 NL Psych Exam: Mental status NL Diagnostic and Laboratory Diagnostic Review Radiologic images, relevant labs and pathology reports were personally reviewed and discussed with Mr. Garcia. Assessment and Plan Impression Assessment Mr. Garcia is a 65 year old male former smoker seen for a followup visit today at the department of radiation oncology for a history of oligometastatic NSCLC [id number] stage ELISA. He had a solitary metastatic focus on PET-CT @ C2. He underwent concurrent chemoradiation for his chest disease 60 Gy in 30 fractions 09/02/20-10/11/20, and SBRT to the C2 lesion 30 Gy in 5 fractions from 10/07/20-10/11/20. He has been recommended to undergo adjuvant chemoimmunotherapy with Dr. Torres but has held off thus far due to fatigue and weight loss. Sinan feels well but continues to struggle to gain weight and normalize his sodium level. He continues to take ensure and is trying to increase calorie density in the foods he eats. He has no physical barrier to eating, dysphagia has resolved. He just has poor appetite. He mentions that Dr. Torres has prescribed an appetite stimulant and is seeing him back in a few weeks. I encouraged Sinan to continue to try and gain weight, but cautioned that the longer he remains off systemic therapy, the greater the chance of metastatic recurrence is, and that it would be a shame to compromise the excellent response he has had to treatment thus far and the possibility of enduring remission (he has >90% PDL1 expression after all) by further delays. He will consider this. As he is without symptoms attributable to RT at the moment, and Dr. Torres is ordering scans for Fall 2020, I will see Sinan in 6 months time. He knows I could see him sooner if needed. Performance Status ECOG 1 Plan Follow up in [address] Torres Mr. Garcia was encouraged to call with questions or concerns in the interim period. Billing Statement Total time of [28] minutes was spent preparing for the visit [2], obtaining HPI [5], examining the patient [2], reviewing diagnostic tests [4], discussing management options [6], coordinating care [2], and writing this note [7]. CHELSEA CASH MD Jan 29, 2021 15:06
== END ==
LOC: M ONCR 13:57
PROVIDERS: ATTEND General Practice
DX: C34.12 Malignant neoplasm of upper lobe, left bronchus or lung (principal); Z79.899 Other long term (current) drug therapy; Z87.891 Personal history of nicotine dependence; Z88.1 Allergy status to other antibiotic agents; Z88.8 Allergy status to other drugs, medicaments and biological substances; Z92.21 Personal history of antineoplastic chemotherapy; Z92.3 Personal history of irradiation

== ENCOUNTER → 2021-02-06 | Outpatient (REF) | payer OTHER ==
[~2021-02-06] MED LIST changes: +DICL1GEL3; +GABA-282 PO; +GABA600T4 PO; +GOOD8.6T2; +INCR1INH INH; +LACT20EL PO; +MELO15TA28 PO; +MORP30TASA PO; +ONDA-84 PO; -ONDA8TAB10 PO; +POTA10TA17 PO; -PROC10TA4 PO; +PROC10TA5 PO
== END ==
LOC: M LAB REF 13:01
PROVIDERS: ATTEND Internal Medicine Nephrology
DX: E22.2 Syndrome of inappropriate secretion of antidiuretic hormone (principal)

== ENCOUNTER → 2021-02-25 | Outpatient (CLI) | payer OTHER ==
[~2021-02-25] MED LIST changes: -DICL1GEL3; -GABA-282 PO; -GABA600T4 PO; -GOOD8.6T2; -INCR1INH INH; -MORP30TASA PO; -ONDA-84 PO; +ONDA8TAB10 PO; -POTA10TA17 PO; +PROC10TA4 PO; -PROC10TA5 PO
--- NOTE | 2021-02-25 10:32 | RADENCPD ---
Date/Time of Encounter Date of Encounter: Feb 25, 2021 Time of Encounter: 10:26 Encounter Sinan came in for a brief follow up today complaining of poor appetite, constipation, and left leg pain. His pain starts in the low back and radiates down the back of the leg causing numbness in the left foot. He says his oxycodone doesn't help. Tried ibuprofen without much improvement. His appetite is poor intermittently, associated with no BM for 2-3 days. He cannot afford OTC bowel meds. He is still taking zofran and reglan regularly. I encouraged him to discuss his pain symptoms with Ita Campbell in the coming days. In the meantime I will give him a trial of meloxicam, as NSAIDs are more effective for back pain/radiculopathy than narcotics in some instances. Ita can modify this as she sees fit. For his constipation, I asked him to discontinue the reglan and zofran and I will give him lactulose to take if he does not have bowel movement for >=2 days. Hopefully this improves his appetite as well. He will see me as previously scheduled in April, or sooner if need arises. CHELSEA CASH MD Feb 25, 2021 10:32
== END ==
LOC: M ONCR 09:34
PROVIDERS: ATTEND General Practice
DX: C34.12 Malignant neoplasm of upper lobe, left bronchus or lung (principal); C79.51 Secondary malignant neoplasm of bone; K57.00 Diverticulitis of small intestine with perforation and abscess without bleeding; M54.5 Low back pain; R20.2 Paresthesia of skin

== ENCOUNTER → 2021-03-20 | Outpatient (CLI) | payer OTHER ==
[~2021-03-20] MED LIST changes: +DICL1GEL3; +GABA-282; +GOOD8.6T2
--- NOTE | 2021-03-20 12:20 | RADONC ---
Radiation Oncology Hx/FUP Radiation Oncology Hx/FUP Date of Service: Mar 20, 2021 Pt Identifier Sinan Garcia is a 65 year old male seen for a followup visit today at the department of radiation oncology for a history of oligometastatic NSCLC [id number] stage ELISA. He had a solitary metastatic focus on PET-CT @ C2. He underwent concurrent chemoradiation for his chest disease 60 Gy in 30 fractions 09/02/20-10/11/20, and SBRT to the C2 lesion 30 Gy in 5 fractions from 10/07/20- 10/11/20. He has been recommended to undergo adjuvant chemoimmunotherapy with Dr. Torres but has held off thus far due to fatigue and weight loss. Diagnosis/Treatment History Oncologic History Patient presented with cough and left sided chest pain to PCP and CXR on 06/18/20 showed right mediastinal fullness. 06/27/20 CT chest showed a CASA primary lesion 1.7 in greatest extent as well as bulky left hilar and bilateral mediastinal adenopathy. 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 He was evaluated by Dr. Castro who on 07/17/20 performed mediastinoscopy and biopsy which returned NSCLC (adenocarcinoma PDL1 >90%), additional stains showed no neuroendocrine differentiation. He was deemed inoperable. Chemoradiation 60 Gy in 30 fractions 09/02/20-10/11/20. SBRT to C2 lesion 10/07/20-10/11/20. He had significant dysphagia from RT esophagitis, which eventually resolved. He requested holding chemotherapy after cycle 3 of carboplatin/pemetrexed due to poor appetite and weight loss. Plan after that was for pemetrexed maintenance and keytruda. Recent data: 12/27/20 CT chest abdomen pelvis CR in lung no residual shelia disease or primary lung mass. No evidence of metastatic progression. Interval History Sinan comes in today for concern of mounting pain in the low back left hip and now, numbness and foot drop in the left leg. Reports the pain in the low back and pelvis have been present for 6-8 weeks and the left foot dragging started about 3-4 weeks ago. He has been eating better weight is up 4 lbs. He has recently started on gabapentin by palliative care, this has helped some but is not completely relieving. The hip pain is constant aching, 3-4/10. The low back pain is constant but less intense. Current Therapy Surveillance, immunotherapy held Stage NSCLC CASA [id number] stage ELISA Social History: 60 pack year former smoker quit late 2019 Former alcohol abuse Former narcotic and cocaine abuse Allergies / Meds Allergies: Coded Allergies: ciprofloxacin (Verified Allergy, Unknown, 07/14/20) hydrochlorothiazide (Verified Adverse Reaction, Severe, low sodium levels, 08/23/20) Home Meds Active Scripts Meloxicam (Meloxicam) 15 Mg Tablet, 1 TAB PO DAILY for 30 Days, #30 TAB Prov:CHELSEA CASH MD 02/25/21 Lactulose (Lactulose) 10 Gm/15 Ml Solution, 30 ML PO DAILYPRN PRN for CONSTIPATION, #1.8 L Prov:CHELSEA CASH MD 02/25/21 Folic Acid (Folic Acid) 1 Mg Tablet, 1 TAB PO DAILY for 30 Days, #90 TAB 1 Refill Prov:MARY TORRES MD FAC 09/02/20 Reported Medications Diclofenac Sodium (Diclofenac Sodium) 1% 100GM Gel..gram. 03/20/21 Sennosides/Docusate Sodium (Stimulant Laxative Plus Tablet) 1 Each Tablet 03/20/21 Gabapentin (Gabapentin) 300 Mg Capsule 03/20/21 Oxycodone HCl (Oxycodone HCl) 10 Mg Tablet, 1 TAB PO Q4HP 09/04/20 Bisacodyl (Dulcolax) 5 Mg Tablet.dr, 1 TAB PO ASDIRECTED for constipation for 1 Day, #2 TAB 08/23/20 Tiotropium Br/Olodaterol HCl (Stiolto Respimat Inhal [place]) 4 Gm Mist.inhal, 2 PUFFS INH DAILY 07/14/20 Albuterol Sulfate (Ventolin Hfa) 18 Gm Hfa.aer.ad, 2 PUFFS INH QID PRN for SOB/WHEEZING 07/14/20 Metoprolol Succinate (Metoprolol Succinate) 50 Mg Tab.er.24h, 50 MG PO DAILY 07/14/20 Trazodone HCl (Trazodone HCl) 100 Mg Tab, 100 MG PO QHS 10/06/16 Pravastatin Sodium (Pravastatin Sodium) 80 Mg Tab, 80 MG PO DAILY 10/06/16 Discontinued Scripts Amlodipine Besylate (Amlodipine Besylate) 5 Mg Tablet, 5 MG PO DAILY, #30 TAB Prov:Silvana Hdz MD 07/18/20 Review of Systems Review of Systems Constitutional: Denies: Chills, Fever, Fatigue, Weight Loss Eyes: Denies: Pain HEENT: Denies: Head Aches Pulmonary: Denies: Dyspnea, Cough Cardiovascular: Denies: Chest Pain Gastrointestinal: Denies: Abdominal Pain Musculoskeletal: Reports: Back pain, Leg pain Neurological: Reports: Weakness, Numbness Psych: Reports: Mood Normal Physical Examination Vital Signs Wt 139 lbs T 97.2 P 78 RR 18 BP 134/69 O2 96% Pain 1 Fatigue 1 General Exam: Alert, Cooperative, No Acute Distress Eye Exam: PERRLA, EOMI Extremity Exam: Negative: Edema Neuro Exam: Normal Gait, Normal Speech, Cranial Nerves 3-12 NL Psych Exam: Mental status NL, Mood NL Other Physical Findings Muskuloskeletal: There is minimal tenderness in the low back over the lumbar spine and sacrum, there is no tenderness over the posterior aspects of the 9th- 12th ribs. No CVA tenderness. There is exquisite tenderness to light palpation over the left iliac crest. None over the right crest. Plantar flexion 5/5 BL. Dorsiflexion 5/5 on right 3/5 on left. Diagnostic and Laboratory Diagnostic Review Radiologic images, relevant labs and pathology reports were personally reviewed and discussed with Mr. Garcia. Assessment and Plan Impression Assessment Mr. Garcia is a 65 year old male with a history of oligometastatic NSCLC [id number] stage ELISA. He had a solitary metastatic focus on PET-CT @ C2. He underwent concurrent chemoradiation for his chest disease 60 Gy in 30 fractions 09/02/20-10/11/20, and SBRT to the C2 lesion 30 Gy in 5 fractions from 10/07/20- 10/11/20. He has been recommended to undergo adjuvant chemoimmunotherapy with Dr. Torres but has held off thus far due to fatigue and weight loss. He has demonstrable weakness in dorsiflexion on the left, c/w new foot drop. He also has tenderness in the left iliac crest on palpation. His last CT scans were 12/27/20, he is due to be restaged independent of the new findings. I explained that I think CT scans of the C/A/P are warranted at this time and may point to the etiology of his pain and neuro symptoms. If these show metastatic progression in bone, then he should start systemic therapy and undergo palliative RT promptly. If scans do not show metastatic progression then I would obtain an MRI of the lumbosacral spine to evaluate for other causes of the pain and foot drop. A bone scan or PET-CT might be worthwhile as well contingent upon the CT results. I will call him after the CT scans are obtained to discuss next steps. In the meantime palliative care is managing his pain medications. Performance Status ECOG [address] C/A/P w/ IVC stat to restage/evaluate for source of new back pain and left foot drop Will call with results after scan and determine next steps Mr. Garcia was encouraged to call with questions or concerns in the interim period. Billing Statement Total time of [28] minutes was spent preparing for the visit [2], obtaining HPI [5], examining the patient [5], reviewing diagnostic tests [3], discussing management options [6], coordinating care [1], and writing this note [6]. CHELSEA CASH MD Mar 20, 2021 12:20
--- NOTE | 2021-03-24 10:35 | RADENCPD ---
Date/Time of Encounter Date of Encounter: Mar 24, 2021 Time of Encounter: 08:36 Encounter Spoke to Sinan, his CTs have no evidence of active malignancy, rather he has multilevel degenerative changes in his low back. We discussed PT referral and he agreed. He has follow up with me in April 2021. CHELSEA CASH MD Mar 24, 2021 10:35
== END ==
LOC: M ONCR 11:00
PROVIDERS: ATTEND General Practice
DX: C34.12 Malignant neoplasm of upper lobe, left bronchus or lung (principal); C79.51 Secondary malignant neoplasm of bone

== ENCOUNTER → 2021-03-21 | Outpatient (CLI) | payer OTHER ==
[~2021-03-21] MED LIST changes: +GASTROGRAFIN SOLUTION 30ML (Q9963) As Ordered ONE; +ISOVUE-370 76% 100ML VIAL As Ordered ONE
--- NOTE | 2021-03-21 15:59 | REP ---
INDICATION: RESTAGING LUNG CA, LT HIP PAIN, FOOT DROP- LABS FIRST. COMPARISON: 12/27/2020 TECHNIQUE: Axial contrast-enhanced images from the lung bases to the pubic symphysis using oral and 100 cc Isovue 370 intravenous contrast material. Delayed images of the abdomen along with coronal and sagittal reformations obtained. This CT examination was performed using the following dose reduction techniques: Automated exposure control, adjustment of mA and/or kv according to the patient's size, and the use of iterative reconstruction technique. FINDINGS: Liver, spleen, pancreas, gallbladder, bilateral adrenal glands and kidneys are normal. Incidental nonobstructing nephroliths measure up to 3 mm bilaterally. The enteric system including stomach, small, and large bowel appears normal. No evidence for obstruction or acute inflammatory process. Normal terminal ileum and appendix are identified in the right lower quadrant. Scattered sigmoid diverticula noted without acute diverticulitis. Pelvis demonstrates normal bladder and age-appropriate prostate/seminal vesicles. No ascites. No free air. No intraperitoneal or retroperitoneal adenopathy. Atherosclerotic changes to the aorta and vasculature noted without aneurysm or dissection. Musculoskeletal structures demonstrate multilevel degenerative changes without acute osseous abnormality. IMPRESSION: 1. No acute abdominopelvic pathology appreciated. 2. No ascites, focal inflammatory stranding, adenopathy. 3. Nonacute findings include bilateral nephroliths and diverticulosis. <Electronically signed by Jann Nieves > 03/21/21 [id number]
--- NOTE | 2021-03-21 16:00 | REP ---
INDICATION: RESTAGING LUNG CA, LT HIP PAIN, FOOT DROP COMPARISON: Multiple the latest 12/27/2020 TECHNIQUE: Standard helical technique after the intravenous administration of 100 cc Isovue 370 FINDINGS: There is a 1.3 cm sized right hilar lymph node which has decreased in size when compared to the prior exam. There is no mediastinal adenopathy or left hilar adenopathy. There are no pleural or pericardial effusions. The imaged osseous structures are stable and intact. Evaluation of the lung gan shows biapical pleuroparenchymal scarring status quo. Scattered parenchymal bulla and pleural blebs are again noted status quo. These are seen particularly in the lung apical regions. There are no new abnormal nodules, masses, or opacities. IMPRESSION: 1. Borderline to mildly enlarged right hilar lymph node but decreased in size from the prior exam. 2. No new abnormal lung nodules or opacities. 3. Stable appearing chronic emphysematous changes. <Electronically signed by Robert Benson > 03/21/21 [id number]
== END ==
LOC: M RAD 13:50
PROVIDERS: ATTEND General Practice
DX: C34.12 Malignant neoplasm of upper lobe, left bronchus or lung (principal); C79.51 Secondary malignant neoplasm of bone
CPT/HCPCS: 71260; 74177; Q9963; Q9967

== ENCOUNTER → 2021-04-07 | Outpatient (CLI) | payer OTHER ==
[~2021-04-07] MED LIST changes: -GASTROGRAFIN SOLUTION 30ML (Q9963) As Ordered ONE; -ISOVUE-370 76% 100ML VIAL As Ordered ONE
--- NOTE | 2021-04-08 10:35 | REP ---
INDICATION: RESTAGING LEFT UPPER LOBE LUNG CANCER C34.12. COMPARISON: Prior PET-CT of 08/19/2020, prior CT chest abdomen and pelvis 03/21/2021. TECHNIQUE: After the intravenous administration of 8.80 mCi of FDG 18 triplane whole-body PET-CT was performed from the skull base to mid thigh. FINDINGS: There is a new focus of abnormal hypermetabolic activity seen in the right posterior cervical chain at the level of the hyoid bone which has a maximal SUV value of 4.02. There is a new right posterior paraspinal mass which measures 3.3 cm. This is at the level of T2 and is abnormally hypermetabolic with a maximal SUV value of 4.86. There is a new abnormal right paraspinal soft tissue mass which begins at the T3 level and continues to the inferior T4 level and is either arising from or invading the central canal area. This measures approximately 4 by 3.8 cm including the central canal component. This has a maximal SUV value of 8.14 which is within the T3 vertebral body. In the right supraclavicular neck soft tissues there is an abnormal focus of hypermetabolic activity which has a maximal SUV value of 3.04. This is consistent with a hypermetabolic lymph node although nonenlarged. The right paratracheal, mediastinal, and left hilar hypermetabolic activity seen with adenopathy on the prior exam has all abated. There is a right paraspinal mass at the level of T10 which is particularly posterior and arises from or invades the central canal at that level. This is abnormally hypermetabolic, has a maximal SUV value of 8.56, and measures approximately 2.8 x 1.8 cm. Abnormal hypermetabolic activity is also seen at the T11 region involving that vertebral body on the right and the posterior elements on the left and having maximal SUV values of 7.41 and 6.09 respectively. Two additional foci of abnormal hypermetabolic activity are seen in the right posteromedial pleura at that level having a maximal SUV value of 5.04. There is a focus of abnormal hypermetabolic activity seen at the T11 level on the right abutting the paraspinal musculature and pleura having a maximal SUV value of 7.17. Just superior to this along the right anterior vertebral body border there is an additional focus of abnormal hypermetabolic activity which has a maximal SUV value of 4.76. There is new abnormal hypermetabolic activity seen within the right adrenal gland the nodular thickening of which has increased from the prior CT and has a maximal SUV value of 9.91. There is a new large area of hypermetabolic activity seen in the left iliacus muscle and gluteus musculature on both sides of and including the left ilium and having a maximal SUV value of 13.05 which is in the left anterior gluteus musculature component of this rather expansive region of increased soft tissue density and difficult to evaluate on the nondiagnostic noncontrast enhanced CT component of this exam. There is hypermetabolic left inguinal and left hemipelvic sidewall adenopathy the sidewall adenopathy has a maximal SUV value of 9.16 and the inguinal adenopathy has a maximal SUV value of 15.33. Nonenlarged right inferior sidewall hypermetabolic lymph nodes are also noted and having a maximal SUV value of 5.29. There is extensive new hypermetabolic activity seen in the proximal right femur including the femoral neck and lesser trochanter having a maximal SUV value of 6.39 and new abnormal hypermetabolic activity seen in the right ischium and inferior pubic ramus having an abnormal maximal SUV value of 8.79 which is in the inferior pubic ramus. No other areas of abnormal hypermetabolic activity are seen in the neck, chest, abdomen, or pelvis. IMPRESSION: There is new multifocal abnormal hypermetabolic activity seen in the soft tissues and skeletal structures of the right neck, chest, abdomen, and pelvis as described above. The findings are consistent with metastatic disease in all those aforementioned areas. <Electronically signed by Robert Benson > 04/08/21 1033
== END ==
LOC: M PLARAD 15:31
PROVIDERS: ATTEND Internal Medicine Medical Oncology
DX: C34.12 Malignant neoplasm of upper lobe, left bronchus or lung (principal)
CPT/HCPCS: 78815; A9552

== ENCOUNTER → 2021-04-23 | Outpatient (CLI) | payer OTHER ==
[~2021-04-23] MED LIST changes: -GABA-282; +GABA-282 PO
--- NOTE | 2021-04-23 16:05 | RADONC ---
Radiation Oncology Hx/FUP Radiation Oncology Hx/FUP Date of Service: Apr 23, 2021 Pt Identifier Sinan Garcia is a 65 year old male seen for a followup visit today at the department of radiation oncology for a history of oligometastatic NSCLC [id number] stage ELISA. He had a solitary metastatic focus on PET-CT @ C2. He underwent concurrent chemoradiation for his chest disease 60 Gy in 30 fractions 09/02/20-10/11/20, and SBRT to the C2 lesion 30 Gy in 5 fractions from 10/07/20- 10/11/20. He did not undergo adjuvant chemoimmunotherapy due to fatigue and weight loss and on restaging PET-CT from 04/07/21 showed multifocal progression. He is seen for palliative RT for pain and impending cord compression. Diagnosis/Treatment History Oncologic History Patient presented with cough and left sided chest pain to PCP and CXR on 06/18/20 showed right mediastinal fullness. 06/27/20 CT chest showed a CASA primary lesion 1.7 in greatest extent as well as bulky left hilar and bilateral mediastinal adenopathy. He was admitted to [facility] with a sodium of 115, evaluation showing SIADH, thought to be from his tumor, this resolved with conservative management. He was evaluated by Dr. Castro who on 07/17/20 performed mediastinoscopy and biopsy which returned NSCLC (adenocarcinoma PDL1 >90%), additional stains showed no neuroendocrine differentiation. He was deemed inoperable. Chemoradiation 60 Gy in 30 fractions 09/02/20-10/11/20. SBRT to C2 lesion 10/07/20-10/11/20. He had significant dysphagia from RT esophagitis, which eventually resolved. He requested holding chemotherapy after cycle 3 of carboplatin/pemetrexed due to poor appetite and weight loss. Plan after that was for pemetrexed maintenance and keytruda. Recent data: 04/07/21 PET-CT T3-4 paraspinal soft tissue met with impending cord compression T10 paraspinal soft tissue met with impending cord compression Large left superior gluteus vida metastasis Right femoral neck metastasis, right ischium metastasis Interval History Sinan has refractory pain in the left hip, worst constant 9/10. He has midthoracic spinal pain as well less bothersome. He also notes increased LLE>RLE swelling and pain in the left ankle and hip. He has poor appetite, continues to lose weight. He has been on morphine 30 mg with positive effect. Pain managed by palliative care. Current Therapy Keytruda pending Stage NSCLC CASA [id number] stage IVB Social History: 60 pack year former smoker quit late 2019 Former alcohol abuse Former narcotic and cocaine abuse Allergies / Meds Allergies: Coded Allergies: ciprofloxacin (Verified Allergy, Unknown, 07/14/20) hydrochlorothiazide (Verified Adverse Reaction, Severe, low sodium levels, 08/23/20) Home Meds Active Scripts Lactulose (Lactulose) 10 Gm/15 Ml Solution, 30 ML PO DAILYPRN PRN for CONSTIPATION, #1.8 L Prov:CHELSEA CASH MD 02/25/21 Folic Acid (Folic Acid) 1 Mg Tablet, 1 TAB PO DAILY for 30 Days, #90 TAB 1 Refill Prov:MARY TORRES MD FAC 09/02/20 Reported Medications Morphine Sulfate (Morphine Sulfate ER) 15 Mg Tablet.er, 1 TAB PO TIDP 04/22/21 Gabapentin (Gabapentin) 300 Mg Capsule, 1 CAP PO TID 03/20/21 Oxycodone HCl (Oxycodone HCl) 10 Mg Tablet, 1 TAB PO Q4HP 09/04/20 Bisacodyl (Dulcolax) 5 Mg Tablet.dr, 1 TAB PO ASDIRECTED for constipation for 1 Day, #2 TAB 08/23/20 Tiotropium Br/Olodaterol HCl (Stiolto Respimat Inhal [place]) 4 Gm Mist.inhal, 2 PUFFS INH DAILY 07/14/20 Albuterol Sulfate (Ventolin Hfa) 18 Gm Hfa.aer.ad, 2 PUFFS INH QID PRN for SOB/WHEEZING 07/14/20 Metoprolol Succinate (Metoprolol Succinate) 50 Mg Tab.er.24h, 50 MG PO DAILY 07/14/20 Trazodone HCl (Trazodone HCl) 100 Mg Tab, 100 MG PO QHS 10/06/16 Pravastatin Sodium (Pravastatin Sodium) 80 Mg Tab, 80 MG PO DAILY 10/06/16 Discontinued Reported Medications Diclofenac Sodium (Diclofenac Sodium) 1% 100GM Gel..gram. 03/20/21 Sennosides/Docusate Sodium (Stimulant Laxative Plus Tablet) 1 Each Tablet 03/20/21 Discontinued Scripts Meloxicam (Meloxicam) 15 Mg Tablet, 1 TAB PO DAILY for 30 Days, #30 TAB Prov:CHELSEA CASH MD 02/25/21 Physical Examination Vital Signs Wt 143 lbs P 80 RR 20 BP 160/83 O2 96% Pain 8 Fatigue 2 General Exam: Alert, Cooperative, No Acute Distress Eye Exam: PERRLA, EOMI Neuro Exam: Normal Gait, Normal Speech, Cranial Nerves 3-12 NL Psych Exam: Mental status NL Other Physical Findings Tenderness over spinal and paraspinal musculature mid back. There is exquisite tenderness over the left lateral iliac crest. Diagnostic and Laboratory Diagnostic Review Radiologic images, relevant labs and pathology reports were personally reviewed and discussed with Mr. Garcia. Assessment and Plan Impression Assessment Mr. Garcia is a 65 year old male with a history of oligometastatic NSCLC [id number] stage ELISA. He had a solitary metastatic focus on PET-CT @ C2. He underwent concurrent chemoradiation for his chest disease 60 Gy in 30 fractions 09/02/20-10/11/20, and SBRT to the C2 lesion 30 Gy in 5 fractions from 10/07/20- 10/11/20. He did not undergo adjuvant chemoimmunotherapy due to fatigue and weight loss and on restaging PET-CT from 04/07/21 showed multifocal progression. He is seen for palliative RT for pain and impending cord compression. Now with multifocal progressive disease, most worrisome are paraspinal soft tissue metastases @ T3-4 and T10. These are threatening the cord and should be treated. Also he has pelvic pain correlating with a soft tissue metastasis in the left superior gluteus vida abutting the iliac crest, also has right femoral neck metastasis which could fracture. I discussed 20 Gy in 5 fraction palliative treatment to 2 [facility], one AP/PA for the T spine lesions, the other AP/PA for the left gluteal and right femoral neck metastases. This should be effective and well tolerated. He then could go on to [facility] with Dr. Torres. Simulation can occur tomorrow or Wednesday treatment can commence next week. Performance Status ECOG 2 Plan 20 Gy in 5 fraction palliative RT to the sites described above Simulation tomorrow or Wednesday Pain medication per palliative care Mr. Garcia was encouraged to call with questions or concerns in the interim period. Billing Statement Total time of [25] minutes was spent preparing for the visit [1], obtaining HPI [4], examining the patient [3], reviewing diagnostic tests [5], discussing management options [5], coordinating care [1], and writing this note [6]. CHELSEA CASH MD Apr 23, 2021 16:05
== END ==
LOC: M ONCR 13:56
PROVIDERS: ATTEND General Practice
DX: C34.12 Malignant neoplasm of upper lobe, left bronchus or lung (principal); C79.51 Secondary malignant neoplasm of bone; Z87.891 Personal history of nicotine dependence; Z79.899 Other long term (current) drug therapy; Z79.891 Long term (current) use of opiate analgesic

== ENCOUNTER → 2021-04-29 | Outpatient (CLI) | payer OTHER ==
[~2021-04-29] MED LIST changes: +GABA600T4 PO; +INCR1INH INH; +MORP30TASA PO; +ONDA-84 PO; -ONDA8TAB10 PO; +POTA10TA17 PO; -PROC10TA4 PO; +PROC10TA5 PO
== END ==
LOC: M RAD 10:35
PROVIDERS: ATTEND Internal Medicine Nephrology
DX: R60.0 Localized edema (principal)

== ENCOUNTER → 2021-05-06 | Outpatient (RCR) | payer OTHER | LOC: M ONCR 04-25 10:43 | PROVIDERS: ATTEND General Practice | DX: C79.51 Secondary malignant neoplasm of bone (principal) ==

== ENCOUNTER 2021-05-07 12:18 | Outpatient (RCR) | payer OTHER ==
[~2021-05-07 12:18] MED LIST changes: -GABA600T4 PO; -INCR1INH INH; -MORP30TASA PO; -ONDA-84 PO; +ONDA8TAB10 PO; -POTA10TA17 PO; +PROC10TA4 PO; -PROC10TA5 PO
--- NOTE | 2021-06-03 12:00 | RADENCPD ---
Date/Time of Encounter Date of Encounter: Jun 03, 2021 Time of Encounter: 11:56 Encounter Sinan called today to report that he has ongoing pain in the spine ~mid-back, radiating to the legs, no weakness, some numbness, no bowel or bladder changes. I reviewed the imaging we have with him, symptoms are suggestive of T10 lesion progression or residual, given that he now has some radiculopathy which was not present before. I discussed retreatment of this site and the risks/benefits thereof. I also stated that if on planning there were bony changes, we could also pursue kyphoplasty as an adjuvant to reirradiation. He agreed to proceed. He also described continued right hip pain, correlating with lesions in the right acetabulum and femoral neck which are untreated. Therefore will include this site as well as T10. For treatment I will give 5 fractions with VMAT to the T10 spine in order to meet spinal cord tolerances. The right hip treatment will be conventional technique with portal imaging. CHELSEA CASH MD Jun 03, 2021 12:00
== END 2021-06-06 ==
LOC: M ONCR 12:18
PROVIDERS: ATTEND General Practice
DX: C79.51 Secondary malignant neoplasm of bone (principal)

== ENCOUNTER → 2021-05-09 | Outpatient (REF) | payer OTHER | LOC: M LAB REF 16:53 | PROVIDERS: ATTEND Internal Medicine Nephrology | DX: E22.2 Syndrome of inappropriate secretion of antidiuretic hormone (principal); I10 Essential (primary) hypertension ==

== ENCOUNTER → 2021-05-12 | Outpatient (CLI) | payer OTHER ==
[~2021-05-12] MED LIST changes: +PROHANCE 279.3MG/ML 15ML VIAL As Ordered ONE
--- NOTE | 2021-05-12 20:54 | REPVR ---
PROCEDURE INFORMATION: Exam: MR Thoracic Spine Without and With Contrast Exam date and time: 05/12/2021 1:49 PM Age: 65 years old Clinical indication: Condition or disease; Cancer, metastatic/secondary to thoracic bone; Additional info: Lung CA w/ mets w/ t spine pain TECHNIQUE: Imaging protocol: Multiplanar magnetic resonance images of the thoracic spine without and with contrast. Contrast material: PROHANCE; Contrast volume: 15 ml; Contrast route: INTRAVENOUS (IV); COMPARISON: PT PET/CT Skull/mid thigh 04/07/2021 5:37 PM FINDINGS: Metastatic disease is present throughout the thoracic spine, most prominently at the T3 and T10 levels. At the T3 level there is invasion into the right aspect of the vertebral body and pedicle as well as the right lateral and posterior epidural space contributing to mild canal stenosis. There is also invasion into the adjacent right posterior 3rd rib and posterior paravertebral soft tissues. At the T10 level there is invasion into the right posterior aspect of the T10 vertebral body, bilateral pedicles, and bilateral posterior elements. There is also a invasion of the adjacent right posterior 10th rib. Epidural extension of tumor at the T10 level posteriorly contributes to mild canal stenosis. Additional small scattered foci of enhancing metastases throughout visualized bones. No severe canal stenosis in the thoracic spine. No cord compression. No abnormal cord signal. Thoracic kyphosis is preserved. Disc space heights are preserved. IMPRESSION: Metastatic disease to the visualized spine, most prominently at T3 and T10, as detailed above. Electronically signed by: Stewart Ortega On 05/12/2021 20:53:36 PM
== END ==
LOC: M RAD 12:34
PROVIDERS: ATTEND Internal Medicine Medical Oncology
DX: C79.51 Secondary malignant neoplasm of bone (principal); C34.90 Malignant neoplasm of unspecified part of unspecified bronchus or lung
CPT/HCPCS: 72157; A9576

== ENCOUNTER 2021-06-17 10:18 | Inpatient (IN) | payer OTHER ==
[~2021-06-17] VITALS: Ht 182.9 cm; Wt 71.4 kg
[~2021-06-17 10:18] MED LIST changes: +ONDA-84 PO; -ONDA8TAB10 PO; -PROC10TA4 PO; +PROC10TA5 PO; -PROHANCE 279.3MG/ML 15ML VIAL As Ordered ONE
[2021-06-17] MEDS ORDERED: ADENOSINE 6MG/2ML INJECTION (J0153) IV STA (11:17)
[2021-06-17] MEDS ORDERED: ADENOSINE 6MG/2ML INJECTION (J0153) As Ordered ONE (11:18)
[2021-06-17 11:21] LABS: HEMATOCRIT 37.2 % (42.0-52.0); HEMOGLOBIN 11.9 g/dl (13.5-17.5); MEAN CORPUSCULAR HEMOGLOBIN 29.7 pg (27.0-33.0); MEAN CORPUSCULAR VOLUME 92.8 fl (80.0-96.0); RED BLOOD COUNT 4.01 10^6/uL (4.30-6.10); WHITE BLOOD COUNT 9.6 10^3/uL (4.0-10.0)
[2021-06-17 11:44] LABS: BLOOD UREA NITROGEN 43 MG/DL (7-18); CALCIUM LEVEL 8.4 MG/DL (8.8-10.2); CARBON DIOXIDE LEVEL 35 MEQ/L (21-32); CHLORIDE LEVEL 97 MEQ/L (98-107); CREATININE FOR GFR 0.98 MG/DL (0.70-1.30); GLOMERULAR FILTRATION RATE > 60.0 (>49); GLUCOSE, FASTING 243 MG/DL (70-100); POTASSIUM SERUM 4.6 MEQ/L (3.5-5.1); SODIUM LEVEL 139 MEQ/L (136-145)
[2021-06-17 11:45] LABS: NT-PRO BNP 4695 PG/ML (<125)
[2021-06-17 11:47] LABS: PLATELET COUNT, AUTOMATED 84 10^3/uL (150-450)
[2021-06-17 11:52] LABS: ANISOCYTOSIS 2+; LYMPHOCYTES 1 % (16-44); METAMYELOCYTES 2 % (0-0); MONOCYTES 3 % (0-5); NEUTROPHILS 79 % (28-66); PLATELET ESTIMATE DECREASED (NORMAL); POIKILOCYTOSIS 1+; POLYCHROMASIA 1+
[2021-06-17] MEDS ORDERED: DIGOXIN 0.25 MG TAB PO STA (11:54)
[2021-06-17] MEDS ORDERED: NS 500 ML IV ONE (11:55)
[2021-06-17] MEDS: METOPROLOL 5 MG/5 ML VIAL IV SCH ×6 (11:57→12:50)
[2021-06-17] MEDS ORDERED: cefTRIAXone SOD 2 GM in D5W MINI-BAG PLUS 50 ML IV ONE (12:15)
[2021-06-17] MEDS ORDERED: DIGOXIN INJ 0.5 MG/2 ML AMP (J1160) IV STA ×2 (12:23→17:39)
[2021-06-17] MEDS ORDERED: ISOVUE-370 76% 100ML VIAL As Ordered ONE (13:01)
[2021-06-17] MEDS ORDERED: atenoloL 50 MG TAB PO ONE ×2 (14:00→16:15)
[2021-06-17 14:27] LABS: RSV AMPLIFICATION NEGATIVE (NEGATIVE)
[2021-06-17] MEDS ORDERED: DIGOXIN INJ 0.5 MG/2 ML AMP (J1160) IV ONE (16:15)
[2021-06-17] MEDS ORDERED: FLECAINIDE 50MG TABLET PO ONE (17:40)
[2021-06-17] MEDS ORDERED: GABA600T4 PO (19:45)
[2021-06-17] MEDS ORDERED: INCR1INH INH (19:45)
[2021-06-17] MEDS ORDERED: MORP30TASA PO (19:45)
[2021-06-17] MEDS ORDERED: POTA10TA17 PO (19:46)
[2021-06-17] MEDS ORDERED: HOME MED LIST COMPLETE! XX SCH (19:50)
[2021-06-17] MEDS ORDERED: ALBUTEROL 90 MCG/ACT 8GM HFA INHALER INH PRN (20:50)
[2021-06-17] MEDS ORDERED: MOM 30ML SUSPENSION UDC PO PRN (20:50)
[2021-06-17] MEDS ORDERED: ACETAMINOPHEN TAB 650MG DOSE (2X325MG) PO PRN (20:50)
[2021-06-17] MEDS ORDERED: BISACODYL 5 MG TAB PO PRN (20:50)
[2021-06-17 22:00] LABS: MAGNESIUM LEVEL 1.6 MG/DL (1.8-2.4)
[2021-06-17 22:25] VITALS: BP 116/80
[2021-06-17] MEDS: GABAPENTIN 300 MG CAP PO SCH (22:42)
[2021-06-17] MEDS: PRAVASTATIN 20 MG TAB PO SCH (22:42)
[2021-06-17] MEDS: DOCUSATE SODIUM 100MG CAPSULE PO SCH (22:43)
[2021-06-17] MEDS: MORPHINE 30 MG SA TAB PO SCH (22:43)
[2021-06-17] MEDS: traZODone 100 MG TAB PO SCH (22:43)
[2021-06-18] VITALS (9 sets, daily range): BP systolic 86–110; BP diastolic 55–79
[2021-06-18] MEDS: MAG SULF 1GM/100ML (MAG RUN) 1 GM in IV 1 EA IV SCH ×2 (00:38→01:50)
[2021-06-18] MEDS ORDERED: ENOXAPARIN 60MG/0.6ML SYRINGE (J1650 PER 10MG) SC ONE (02:00)
[2021-06-18] MEDS ORDERED: NS 500 ML IV ONE ×2 (03:35→05:20)
[2021-06-18 04:09] LABS: HEMATOCRIT 34.6 % (42.0-52.0); MEAN CORPUSCULAR HGB CONC 31.8 g/dl (32.0-36.5); MEAN CORPUSCULAR VOLUME 94.3 fl (80.0-96.0); RED BLOOD COUNT 3.67 10^6/uL (4.30-6.10); WHITE BLOOD COUNT 9.2 10^3/uL (4.0-10.0)
[2021-06-18] MEDS ORDERED: SODIUM CHLORIDE 0.9% INJ 10 ML SYR IV PRN ×2 (04:20)
[2021-06-18 04:53] LABS: BLOOD UREA NITROGEN 34 MG/DL (7-18); CALCIUM LEVEL 7.4 MG/DL (8.8-10.2); CARBON DIOXIDE LEVEL 27 MEQ/L (21-32); CHLORIDE LEVEL 101 MEQ/L (98-107); CREATININE FOR GFR 0.71 MG/DL (0.70-1.30); GLOMERULAR FILTRATION RATE > 60.0 (>49); GLUCOSE, FASTING 170 MG/DL (70-100); POTASSIUM SERUM 4.3 MEQ/L (3.5-5.1); SODIUM LEVEL 138 MEQ/L (136-145)
[2021-06-18 05:06] LABS: PLATELET COUNT, AUTOMATED 58 10^3/uL (150-450)
[2021-06-18] MEDS: MORPHINE 30 MG SA TAB PO SCH ×3 (05:15→21:00)
[2021-06-18] MEDS ORDERED: ENOXAPARIN 40MG/0.4ML SYRINGE (J1650 PER 10MG) SC SCH ×2 (09:00)
[2021-06-18] MEDS: GABAPENTIN 300 MG CAP PO SCH ×3 (09:40→21:02)
[2021-06-18] MEDS: ASPIRIN 81MG ENTERIC TABLET PO SCH (09:40)
[2021-06-18] MEDS: DOCUSATE SODIUM 100MG CAPSULE PO SCH ×2 (09:40→20:55)
[2021-06-18] MEDS: DIGOXIN 0.125 MG TAB PO SCH (09:41)
[2021-06-18] MEDS: SODIUM CHLORIDE 0.9% INJ 10 ML SYR IV SCH (09:42)
[2021-06-18] MEDS: atenoloL 50 MG TAB PO SCH ×2 (09:49→20:54)
[2021-06-18] MEDS: oxyCODONE 5MG TAB PO PRN (10:00)
[2021-06-18] MEDS: ENOXAPARIN 60MG/0.6ML SYRINGE (J1650 PER 10MG) SC SCH (18:56)
[2021-06-18] MEDS: PRAVASTATIN 20 MG TAB PO SCH (21:02)
[2021-06-18] MEDS: traZODone 100 MG TAB PO SCH (21:02)
[2021-06-18] MEDS ORDERED: ONDANSETRON 4MG/2ML VIAL IV PRN (21:20)
[2021-06-18] MEDS ORDERED: NS 1,000 ML IV ONE (21:45)
[2021-06-18] MEDS ORDERED: DIGOXIN INJ 0.5 MG/2 ML AMP (J1160) IV ONE (22:05)
[2021-06-18 23:01] LABS: ALBUMIN 1.7 GM/DL (3.2-5.2); ALT/SGPT 176 U/L (12-78); BILIRUBIN,TOTAL 1.6 MG/DL (0.2-1.0); BLOOD UREA NITROGEN 34 MG/DL (7-18); CALCIUM LEVEL 7.1 MG/DL (8.8-10.2); CARBON DIOXIDE LEVEL 31 MEQ/L (21-32); CHLORIDE LEVEL 101 MEQ/L (98-107); CREATININE FOR GFR 0.64 MG/DL (0.70-1.30); GLOMERULAR FILTRATION RATE > 60.0 (>49); GLUCOSE, FASTING 148 MG/DL (70-100); MAGNESIUM LEVEL 1.6 MG/DL (1.8-2.4); POTASSIUM SERUM 4.1 MEQ/L (3.5-5.1); SODIUM LEVEL 139 MEQ/L (136-145); TOTAL PROTEIN 4.5 GM/DL (6.4-8.2)
[2021-06-18] MEDS ORDERED: LEVALBUTEROL 1.25 MG/0.5 ML CONCENTRATE NEB INH PRN (23:10)
[2021-06-18] MEDS ORDERED: IPRATROPIUM 0.5MG/ALBUTEROL 2.5MG INH SOL UD 3ML (DUONEB) NEB PRN (23:10)
[2021-06-19] VITALS (10 sets, daily range): BP systolic 84–108; BP diastolic 42–70
[2021-06-19] MEDS: MAG SULF 1GM/100ML (MAG RUN) 1 GM in IV 1 EA IV SCH ×2 (00:01→01:05)
[2021-06-19] MEDS: MORPHINE 30 MG SA TAB PO SCH ×3 (05:00→22:00)
[2021-06-19] MEDS: ENOXAPARIN 60MG/0.6ML SYRINGE (J1650 PER 10MG) SC SCH ×2 (05:25→22:09)
[2021-06-19 06:15] LABS: ALBUMIN 1.8 GM/DL (3.2-5.2); ALT/SGPT 243 U/L (12-78); BILIRUBIN,TOTAL 1.5 MG/DL (0.2-1.0); BLOOD UREA NITROGEN 33 MG/DL (7-18); CALCIUM LEVEL 7.1 MG/DL (8.8-10.2); CARBON DIOXIDE LEVEL 28 MEQ/L (21-32); CHLORIDE LEVEL 99 MEQ/L (98-107); CREATININE FOR GFR 0.64 MG/DL (0.70-1.30); DIGOXIN LEVEL 1.8 NG/ML (0.5-2.0); GLOMERULAR FILTRATION RATE > 60.0 (>49); GLUCOSE, FASTING 160 MG/DL (70-100); POTASSIUM SERUM 4.1 MEQ/L (3.5-5.1); SODIUM LEVEL 136 MEQ/L (136-145); TOTAL PROTEIN 4.2 GM/DL (6.4-8.2)
[2021-06-19] MEDS ORDERED: NS 1,000 ML IV ONE ×2 (07:40→14:35)
[2021-06-19] MEDS: GABAPENTIN 300 MG CAP PO SCH ×3 (08:01→21:16)
[2021-06-19] MEDS: atenoloL 50 MG TAB PO SCH (08:01)
[2021-06-19] MEDS: DIGOXIN 0.125 MG TAB PO SCH (08:01)
[2021-06-19] MEDS: DOCUSATE SODIUM 100MG CAPSULE PO SCH ×2 (08:01→21:00)
[2021-06-19] MEDS: ASPIRIN 81MG ENTERIC TABLET PO SCH (08:01)
[2021-06-19] MEDS: SODIUM CHLORIDE 0.9% INJ 10 ML SYR IV SCH (08:02)
[2021-06-19] MEDS ORDERED: MAG SULF 1GM/100ML (MAG RUN) 1 GM in IV 1 EA IV ONE (08:05)
[2021-06-19] MEDS: atenoloL 25 MG TAB PO SCH ×2 (08:13→21:00)
[2021-06-19 08:36] LABS: MAGNESIUM LEVEL 2.3 MG/DL (1.8-2.4)
[2021-06-19 08:44] LABS: HEMATOCRIT 34.3 % (42.0-52.0); HEMOGLOBIN 10.8 g/dl (13.5-17.5); MEAN CORPUSCULAR HEMOGLOBIN 29.6 pg (27.0-33.0); MEAN CORPUSCULAR HGB CONC 31.5 g/dl (32.0-36.5); RED BLOOD COUNT 3.65 10^6/uL (4.30-6.10); WHITE BLOOD COUNT 10.8 10^3/uL (4.0-10.0)
[2021-06-19 08:45] LABS: PLATELET COUNT, AUTOMATED 60 10^3/uL (150-450)
[2021-06-19 09:19] LABS: CK-MB VALUE MASS 4.5 NG/ML (<3.6); MB/CK RELATIVE INDEX 2.88 (< OR =4)
[2021-06-19 09:24] LABS: METAMYELOCYTES 1 % (0-0); MYELOCYTES 1 % (0-0); NEUTROPHILS 77 % (28-66); PLATELET ESTIMATE DECREASED (NORMAL)
[2021-06-19 09:25] LABS: OVALOCYTES 4+
[2021-06-19 09:26] LABS: MICROCYTOSIS 1+
[2021-06-19] MEDS: FLECAINIDE 50MG TABLET PO SCH ×2 (09:26→21:16)
[2021-06-19 09:27] LABS: TEAR DROP CELLS 1+
[2021-06-19 09:40] LABS: HEPATITIS B SURFACE ANTIGEN NEGATIVE (NEGATIVE)
[2021-06-19] MEDS: NS 1,000 ML IV SCH ×2 (09:54→22:10)
[2021-06-19 10:07] LABS: HEPATITIS B CORE ANTIBODY IGM NEGATIVE (NEGATIVE)
[2021-06-19 10:49] LABS: HEPATITIS C VIRUS ABY INDEX > 11.0 INDEX (<0.8)
[2021-06-19] MEDS: PIPERACILLIN/TAZOBACTAM SOD 3.375 GM in D5W MINI-BAG PLUS 50 ML IV SCH ×2 (12:01→18:06)
[2021-06-19 12:27] LABS: CK-MB VALUE MASS 4.5 NG/ML (<3.6); MB/CK RELATIVE INDEX 2.81 (< OR =4)
[2021-06-19] MEDS: VANCOMYCIN HCL 750 MG, VIAL MATE ADAPTER 1 EACH in NS 250 ML IV SCH ×2 (13:14→21:07)
[2021-06-19] MEDS ORDERED: VANCOMYCIN HCL 500 MG in D5W MINI-BAG PLUS 100 ML IV ONE (14:00)
[2021-06-19] MEDS: traZODone 100 MG TAB PO SCH (21:16)
[2021-06-20] VITALS (7 sets, daily range): BP systolic 97–104; BP diastolic 58–71
[2021-06-20] MEDS: PIPERACILLIN/TAZOBACTAM SOD 3.375 GM in D5W MINI-BAG PLUS 50 ML IV SCH ×2 (00:01→06:22)
[2021-06-20] MEDS: VANCOMYCIN HCL 750 MG, VIAL MATE ADAPTER 1 EACH in NS 250 ML IV SCH (04:34)
[2021-06-20] MEDS: MORPHINE 30 MG SA TAB PO SCH ×3 (06:00→21:47)
[2021-06-20] MEDS: NS 1,000 ML IV SCH ×3 (06:03→21:59)
[2021-06-20] MEDS: ENOXAPARIN 60MG/0.6ML SYRINGE (J1650 PER 10MG) SC SCH ×2 (06:21→17:41)
[2021-06-20 06:40] LABS: ALBUMIN 1.6 GM/DL (3.2-5.2); ALT/SGPT 347 U/L (12-78); BILIRUBIN,TOTAL 1.6 MG/DL (0.2-1.0); BLOOD UREA NITROGEN 30 MG/DL (7-18); C REACTIVE PROTEIN QUANTITATIV 6.28 MG/DL (0.00-0.30); CALCIUM LEVEL 6.9 MG/DL (8.8-10.2); CARBON DIOXIDE LEVEL 25 MEQ/L (21-32); CHLORIDE LEVEL 104 MEQ/L (98-107); CREATININE FOR GFR 0.61 MG/DL (0.70-1.30); GLOMERULAR FILTRATION RATE > 60.0 (>49); GLUCOSE, FASTING 206 MG/DL (70-100); MAGNESIUM LEVEL 1.7 MG/DL (1.8-2.4); POTASSIUM SERUM 4.2 MEQ/L (3.5-5.1); SODIUM LEVEL 137 MEQ/L (136-145); TOTAL PROTEIN 4.3 GM/DL (6.4-8.2)
[2021-06-20 06:58] LABS: CLOSTRIDIUM DIFFICILE PCR POSITIVE (NEGATIVE)
[2021-06-20] MEDS: MAG SULF 1GM/100ML (MAG RUN) 1 GM in IV 1 EA IV SCH ×2 (08:00→09:07)
[2021-06-20 08:15] LABS: HEMOGLOBIN 10.9 g/dl (13.5-17.5); MEAN CORPUSCULAR HEMOGLOBIN 29.9 pg (27.0-33.0); MEAN CORPUSCULAR HGB CONC 32.1 g/dl (32.0-36.5); MEAN CORPUSCULAR VOLUME 93.2 fl (80.0-96.0); RED BLOOD COUNT 3.65 10^6/uL (4.30-6.10); WHITE BLOOD COUNT 11.7 10^3/uL (4.0-10.0)
[2021-06-20 08:22] LABS: PLATELET COUNT, AUTOMATED 53 10^3/uL (150-450)
[2021-06-20] MEDS: DIGOXIN 0.125 MG TAB PO SCH (08:59)
[2021-06-20] MEDS: ASPIRIN 81MG ENTERIC TABLET PO SCH (08:59)
[2021-06-20] MEDS: atenoloL 25 MG TAB PO SCH ×2 (08:59→20:12)
[2021-06-20] MEDS: FLECAINIDE 50MG TABLET PO SCH ×2 (08:59→20:11)
[2021-06-20] MEDS: GABAPENTIN 300 MG CAP PO SCH ×3 (08:59→20:11)
[2021-06-20] MEDS ORDERED: FIDAXOMICIN 200 MG TAB (DIFICID) PO SCH (09:00)
[2021-06-20] MEDS: SODIUM CHLORIDE 0.9% INJ 10 ML SYR IV SCH (09:00)
[2021-06-20 09:14] LABS: BASOPHILS 1 % (0-1); LYMPHOCYTES 1 % (16-44); MONOCYTES 1 % (0-5); MYELOCYTES 2 % (0-0); NEUTROPHILS 77 % (28-66)
[2021-06-20 09:15] LABS: OVALOCYTES 4+; PLATELET ESTIMATE DECREASED (NORMAL)
[2021-06-20 09:16] LABS: BURR CELLS 2+
[2021-06-20 09:18] LABS: TEAR DROP CELLS 1+
[2021-06-20] MEDS: VANCOMYCIN ORAL SOL 250MG/5ML ORAL SYRINGE PO SCH ×3 (12:32→23:17)
[2021-06-20] MEDS: traZODone 100 MG TAB PO SCH (20:11)
[2021-06-21] VITALS: BP 98/64
[2021-06-21 04:00] VITALS: BP 104/66
[2021-06-21] MEDS: MORPHINE 30 MG SA TAB PO SCH ×3 (05:20→21:50)
[2021-06-21] MEDS: VANCOMYCIN ORAL SOL 250MG/5ML ORAL SYRINGE PO SCH (05:22)
[2021-06-21] MEDS: ENOXAPARIN 60MG/0.6ML SYRINGE (J1650 PER 10MG) SC SCH (05:22)
[2021-06-21 06:23] LABS: HEMATOCRIT 35.4 % (42.0-52.0); HEMOGLOBIN 11.5 g/dl (13.5-17.5); MEAN CORPUSCULAR HEMOGLOBIN 30.6 pg (27.0-33.0); MEAN CORPUSCULAR HGB CONC 32.5 g/dl (32.0-36.5); MEAN CORPUSCULAR VOLUME 94.1 fl (80.0-96.0); RED BLOOD COUNT 3.76 10^6/uL (4.30-6.10); WHITE BLOOD COUNT 12.8 10^3/uL (4.0-10.0)
[2021-06-21 06:29] LABS: PLATELET COUNT, AUTOMATED 55 10^3/uL (150-450)
[2021-06-21 06:47] LABS: ALBUMIN 1.6 GM/DL (3.2-5.2); ALT/SGPT 419 U/L (12-78); BILIRUBIN,TOTAL 1.7 MG/DL (0.2-1.0); BLOOD UREA NITROGEN 28 MG/DL (7-18); CALCIUM LEVEL 6.7 MG/DL (8.8-10.2); CARBON DIOXIDE LEVEL 26 MEQ/L (21-32); CHLORIDE LEVEL 105 MEQ/L (98-107); CREATININE FOR GFR 0.68 MG/DL (0.70-1.30); GLOMERULAR FILTRATION RATE > 60.0 (>49); GLUCOSE, FASTING 219 MG/DL (70-100); POTASSIUM SERUM 4.1 MEQ/L (3.5-5.1); SODIUM LEVEL 140 MEQ/L (136-145)
[2021-06-21] MEDS ORDERED: GLUCOSE 4GM CHEW TABLET PO PRN (07:10)
[2021-06-21] MEDS ORDERED: DEXTROSE 50% 50 ML SYRINGE IV PRN (07:10)
[2021-06-21] MEDS ORDERED: GLUCAGON INJ 1MG VIAL SC PRN (07:10)
[2021-06-21 07:21] LABS: LYMPHOCYTES 1 % (16-44); METAMYELOCYTES 2 % (0-0); NEUTROPHILS 78 % (28-66)
[2021-06-21 07:28] LABS: PLATELET ESTIMATE DECREASED (NORMAL); SCHISTOCYTES 1+
[2021-06-21 07:30] LABS: ANISOCYTOSIS 1+; OVALOCYTES 1+; POLYCHROMASIA 1+
[2021-06-21] MEDS ORDERED: HumaLOG INSULIN (NovoLOG) PER UNIT SC SCH ×2 (07:30→21:00)
[2021-06-21 07:32] LABS: TEAR DROP CELLS 1+
[2021-06-21 08:00] VITALS: BP 87/65
[2021-06-21] MEDS: oxyCODONE 5MG TAB PO PRN (08:11)
[2021-06-21] MEDS ORDERED: LORazepam 2 MG/ML VIAL IV PRN (08:25)
[2021-06-21] MEDS: MORPHINE 2 MG/ML 1ML VIAL (J2270) IV PRN ×2 (10:30→14:21)
[2021-06-21] MEDS: GABAPENTIN 300 MG CAP PO SCH ×3 (10:31→21:49)
[2021-06-21] MEDS: FLECAINIDE 50MG TABLET PO SCH ×2 (10:31→21:50)
[2021-06-21] MEDS: DIGOXIN 0.125 MG TAB PO SCH (10:31)
[2021-06-22] MEDS: MORPHINE 2 MG/ML 1ML VIAL (J2270) IV PRN ×2 (01:58→04:11)
[2021-06-22] MEDS ORDERED: ATROPINE SULFATE 1% OP SOLN 2 ML BTL SL PRN (04:40)
[2021-06-22] MEDS: MORPHINE 30 MG SA TAB PO SCH (05:38)
[2021-06-22] MEDS ORDERED: SCOPOLAMINE 1MG TRANSDERMAL PATCH TOP SCH (06:00)
[2021-06-22] MEDS: FLECAINIDE 50MG TABLET PO SCH (09:05)
[2021-06-22] MEDS: GABAPENTIN 300 MG CAP PO SCH (09:05)
[2021-06-22] MEDS: oxyCODONE 5MG TAB PO PRN (09:05)
[2021-06-22] MEDS: DIGOXIN 0.125 MG TAB PO SCH (09:06)
== END 2021-06-22 11:10 | disposition expired | DRG 720 ==
LOC: M ED 10:18 → EDBD 10:18 → M ED INP 20:50 → ENRESERV 21:54 → M PCU 22:25 → M MS5PR 06-21 16:39
PROVIDERS: ADMIT Family Medicine; ATTEND Internal Medicine
DX: A41.9 Sepsis, unspecified organism (principal); L89.152 Pressure ulcer of sacral region, stage 2; L89.312 Pressure ulcer of right buttock, stage 2; R57.0 Cardiogenic shock; A04.72 Enterocolitis due to Clostridium difficile, not specified as recurrent; E46 Unspecified protein-calorie malnutrition; R65.21 Severe sepsis with septic shock; L89.322 Pressure ulcer of left buttock, stage 2; E87.2 Acidosis; C78.7 Secondary malignant neoplasm of liver and intrahepatic bile duct; C79.51 Secondary malignant neoplasm of bone; D69.6 Thrombocytopenia, unspecified; I47.1 Supraventricular tachycardia; I48.92 Unspecified atrial flutter; E83.42 Hypomagnesemia; L97.928 Non-pressure chronic ulcer of unspecified part of left lower leg with other specified severity; C34.32 Malignant neoplasm of lower lobe, left bronchus or lung; Z51.5 Encounter for palliative care; Z66 Do not resuscitate; R60.1 Generalized edema; I10 Essential (primary) hypertension; E78.5 Hyperlipidemia, unspecified; R74.01 Elevation of levels of liver transaminase levels; I87.2 Venous insufficiency (chronic) (peripheral); J44.9 Chronic obstructive pulmonary disease, unspecified; Z20.822 Contact with and (suspected) exposure to COVID-19; Z79.899 Other long term (current) drug therapy; Z88.1 Allergy status to other antibiotic agents; Z88.8 Allergy status to other drugs, medicaments and biological substances; Z87.891 Personal history of nicotine dependence